=== PATIENT | female | born 1955 | race Hispanic/Latino ===

== ENCOUNTER 2018-07-25 07:51 | Observation (INO) | payer BC ==
[~2018-07-25] VITALS: Ht 157.5 cm; Wt 78.0 kg
--- OUTSIDE RECORDS SUMMARY | 2018-07-25 07:55 | XMS REPORT | Clinical Summary ---
Author Author [facility] Organization [facility] Address Unknown Phone Unavailable Care Team Providers Care Nutrition Therapist Name Role Phone Rosa Severino MD PCP Allergies Comments Active Allergy Reactions Severity Noted Date No Known Allergies 11/21/2012 Medications End Date Status Medication Sig Dispensed Refills Start Date Active sertraline (ZOLOFT) 50 mg Take 1 tablet 90 tablet 3 tabletIndications: by mouth 8 Anxiety and depression daily. Active hydrOXYzine (ATARAX) 25 Take 1 tablet 90 tablet 1 mg tabletIndications: by mouth 8 Anxiety and depression every 8 hours as needed for Anxiety or Insomnia. Active naproxen (NAPROSYN) 375 Take 1 tablet 60 tablet 2 mg tabletIndications: by mouth 2 8 Left-sided chest wall times daily pain, Left arm numbness, as needed for Chronic right-sided low Pain With back pain without food. sciatica, Musculoskeletal pain Active losartan (COZAAR) 50 mg Take 1 tablet 90 tablet 3 tabletIndications: HTN, by mouth 8 goal below 150/90 daily. 11/14/2017 Discontinued clonazePAM (KLONOPIN) 1 Take 2 60 tablet 1 mg tabletIndications: tablets by 3 Anxiety state, mouth nightly unspecified as needed for Anxiety. KEN# [id number], SHAYY LICENSE# [id number], UPIN [id number], NPI# [id number], DPS#[id number], TPI#[id number] 11/14/2017 Discontinued cyclobenzaprine Take 1 tablet 50 tablet 2 (FLEXERIL) 10 mg by mouth 3 3 tabletIndications: times daily Anxiety state, as needed for unspecified Muscle Spasms. 11/14/2017 Discontinued losartan (COZAAR) 50 mg Take 50 mg by 0 tablet mouth daily. 01/23/2018 Discontinued cyanocobalamin (VITAMIN Inject 1,000 1 mL 0 B-12) 1,000 mcg/mL mcg 8 injectionIndications: intramuscular Vitamin B12 deficiency, ly weekly for Left arm numbness, 4 days. Elevated MCV 01/23/2018 Discontinued INSULIN SYRINGE 1mL Use to inject 1 Box 0 30GX5/16" medication 8 syringe-needleIndications weekly : Vitamin B12 deficiency, PHARMACIST IS Left arm numbness, AUTHORIZED TO Elevated MCV DISPENSE ANY SYRINGE / NEEDLE BRAND/SIZE SUITABLE FOR PATIENT ADMINISTRATIO N for 4 doses. Use a new syringe each time. 01/23/2018 Discontinued cyanocobalamin (VITAMIN Inject 1,000 1 mL 0 B-12) 1,000 mcg/mL mcg 8 injectionIndications: intramuscular Vitamin B12 deficiency, ly weekly for Left arm numbness, 4 doses. Elevated MCV 02/14/2018 INSULIN SYRINGE 1mL Use to inject 1 Box 0 30GX5/16" medication 8 syringe-needleIndications weekly : Vitamin B12 deficiency, PHARMACIST IS Left arm numbness, AUTHORIZED TO Elevated MCV DISPENSE ANY SYRINGE / NEEDLE BRAND/SIZE SUITABLE FOR PATIENT ADMINISTRATIO N for 4 doses. Use a new syringe each time. 02/14/2018 cyanocobalamin (VITAMIN Inject 1,000 1 mL 3 B-12) 1,000 mcg/mL mcg 8 injectionIndications: intramuscular Vitamin B12 deficiency, ly weekly for Left arm numbness, 4 doses. Elevated MCV Status Hospital, Clinic, or Ordered Dose Route Frequency Start End Date Other Facility Date Administered Medication Discontinued cyanocobalamin (VITAMIN 1000 mcg IM WEEKLY 01/24/20 B-12) injection 1,000 18 8 mcgIndications: Vitamin B12 deficiency, Left arm numbness, Elevated MCV Active Problems Problem Noted Date Vitamin B12 deficiency 01/23/2018 Hyperlipidemia 11/07/2012 Insomnia 11/07/2012 Unspecified gastritis and gastroduodenitis without mention of hemorrhage 11/07/2012 Generalized Anxiety 11/07/2012 Depression 11/07/2012 Obese with BMI over 30 11/07/2012 Hypertension 11/07/2012 Encounters Care Team Description Date Type Specialty Bee Ibrahim Information Only 01/29/2018 Telephone Family Practice Rosa Severino MD Vitamin B12 deficiency (Primary Dx); Left arm numbness; Elevated MCV; Dehydration; Mixed hyperlipidemia; Colon cancer screening; Prediabetes; Chronic bilateral low back pain without sciatica; HTN, goal below 150/90 01/23/2018 Office Visit Family Practice Kerry Mcgarry Colon Cancer Screening (Education on FIT completion ) 01/21/2018 Telephone Gastroenterology 11/14/2017 Ancillary Radiology Procedure Rosa Severino MD Annual physical exam (Primary Dx); Need for influenza vaccination; Left-sided chest wall pain; Left arm numbness; HTN, goal below 150/90; Anxiety and depression; Chronic right-sided low back pain without sciatica; Musculoskeletal pain 11/14/2017 Office Visit Family Practice after 07/24/2017 Immunizations Name Dates Previously Given Next Due Influenza Vaccine, 11/14/2017 (Deferred: Vaccine Unavailable) Seasonal, Injectable Family History Medical History Relation Name Comments Heart Father Heart attack Asthma Mother Relation Name Status Comments Brother Alive Daughter Alive Daughter Alive Father Heart Attack Mother Alive Sister Alive Sister Alive Sister Alive Son Alive Social History Date Tobacco Use Types Packs/Day Years Used Never Smoker Smokeless Tobacco: Never Used Alcohol Use Drinks/Week oz/Week Comments No Sex Assigned at Date Recorded Not on file Industry Job Start Date Occupation Not on file Not on file Not on file Travel End Travel History Travel Start No recent travel history available. Last Filed Vital Signs Time Taken Vital Sign Reading 01/23/2018 1:02 PM CDT Blood Pressure 150/76 01/23/2018 1:02 PM CDT Pulse 70 01/23/2018 1:02 PM CDT Temperature 36.7 C (98 F) 01/23/2018 1:02 PM CDT Respiratory Rate 18 - Oxygen Saturation - - Inhaled Oxygen - Concentration 01/23/2018 1:02 PM CDT Weight 85.6 kg (188 lb 12.8 oz) 01/23/2018 1:02 PM CDT Height 157.5 cm (5' 2") 01/23/2018 1:02 PM CDT Body Mass Index 34.53 Plan of Treatment Care Team Description Date Type Specialty Rosa Severino MD [address] [facility] [place] [id number] [phone] 08/14/2018 Office Visit Family Practice Health Maintenance Due Date Last Done Comments Colorectal Cancer Scrn 04/24/2007 Annual (FIT/FOBT) Age 50 to 75 Breast Cancer Scrn 12/02/2018 08/03/2017 (Previously completed - Postponed from 08/03/2018 (Yearly) External), 11/07/2009 (Previously (Patient Refused) completed - External), 01/12/2002 Cervical Cancer Scrn (3 08/03/2020 08/03/2017 (Previously completed - Yrs) External), 05/09/2012 (Previously completed - External) Procedures Comments Procedure Name Priority Date/Time Associated Diagnosis XRAY SPINE LUMBOSACRAL Today 11/14/2017 Chronic right-sided low AP-LAT 10:37 AM CDT back pain without sciatica URINE DRUG SCREEN Routine 11/14/2017 Annual physical exam 10:04 AM CDT UA CHEMISTRIES Routine 11/14/2017 Annual physical exam 10:04 AM CDT HTN, goal below 150/90 T PROTEIN Routine 11/14/2017 10:03 AM CDT VITAMIN B12 Routine 11/14/2017 Left arm numbness 10:03 AM CDT SED RATE Routine 11/14/2017 Left arm numbness 10:03 AM CDT ENZO Routine 11/14/2017 Left arm numbness 10:03 AM CDT ELECTROPH, BLD Routine 11/14/2017 Left arm numbness 10:03 AM CDT HBV CORE AB, IGG/IGM Routine 11/14/2017 Annual physical exam 10:03 AM CDT HEPATITIS B SURFACE AB Routine 11/14/2017 Annual physical exam 10:03 AM CDT HEP B SAVANAH AG Routine 11/14/2017 Annual physical exam 10:03 AM CDT HEP C VIR AB IGG Routine 11/14/2017 Annual physical exam 10:03 AM CDT SYPHILIS SCREEN FOR Routine 11/14/2017 Annual physical exam INFECTION 10:03 AM CDT HIV-1/HIV-2 ROUTINE Routine 11/14/2017 Annual physical exam SCREENING 10:03 AM CDT ALT/AST Routine 11/14/2017 Annual physical exam 10:03 AM CDT HEMOGLOBIN A1C Routine 11/14/2017 Annual physical exam 10:03 AM CDT CBC/DIFF Routine 11/14/2017 Annual physical exam 10:03 AM CDT LIPID PROFILE Routine 11/14/2017 Annual physical exam 10:03 AM CDT BASIC METABOLIC PANEL Routine 11/14/2017 Annual physical exam 10:03 AM CDT HTN, goal below 150/90 TSH Routine 11/14/2017 Annual physical exam 10:03 AM CDT 12 LEAD EKG Routine 11/14/2017 Left-sided chest wall 8:59 AM CDT pain Left arm numbness after 07/24/2017 Results * XRAY SPINE LUMBOSACRAL AP-LAT (11/14/2017 10:37 AM CDT) Impressions Performed At IMPRESSION: SMS 1.No acute radiographic abnormality. 2.Mild degenerative disc disease and facet arthropathy at L5-S1. Dictated By: Papa Parada MD, 11/14/2017 11:04 AM I have reviewed the study and agree with the findings in this report. Signed By: Az Amaral MD, 11/14/2017 11:42 AM Narrative Performed At EXAM: Lumbar spine radiograph, 3 views SMS HISTORY: ch right BP with reported radiculopathy but SLRT was neg COMPARISON: None DISCUSSION: Osseous structures are partially obscured by overlying stool and bowel gas. Bone: Five non-rib bearing lumbar vertebral bodies. The alignment is within normal limits. No displaced fracture or compression deformity. Mild degenerative endplate changes. Discs: The disc spaces are well-maintained. Facets: Mild facet arthropathy L5-S1. Soft tissues: No radiographic abnormality. Procedure Note Interface, Rad/Mammog In - 11/14/2017 11:47 AM CDT EXAM: Lumbar spine radiograph, 3 views HISTORY: ch right BP with reported radiculopathy but SLRT was neg COMPARISON: None DISCUSSION: Osseous structures are partially obscured by overlying stool and bowel gas. Bone: Five non-rib bearing lumbar vertebral bodies. The alignment is within normal limits. No displaced fracture or compression deformity. Mild degenerative endplate changes. Discs: The disc spaces are well-maintained. Facets: Mild facet arthropathy L5-S1. Soft tissues: No radiographic abnormality. IMPRESSION IMPRESSION: 1. No acute radiographic abnormality. 2. Mild degenerative disc disease and facet arthropathy at L5-S1. Dictated By: Papa Parada MD, 11/14/2017 11:04 AM I have reviewed the study and agree with the findings in this report. Signed By: Az Amaral MD, 11/14/2017 11:42 AM Performing Organization Address City/[facility] Phone Number SMS * UA CHEMISTRIES (11/14/2017 10:04 AM CDT) Color Yellow BT MAIN-STATION 3 Clarity Hazy BT MAIN-STATION 3 Spec Ladd 1.018 1.001 - 1.035 BT MAIN-STATION 3 pH 6.0 5 - 8 BT MAIN-STATION 3 Protein Negative NEG BT MAIN-STATION 3 Glucose Negative NEG BT MAIN-STATION 3 Ketone Negative NEG BT MAIN-STATION 3 Bilirubin Negative NEG BT MAIN-STATION 3 Nitrate Negative NEG BT MAIN-STATION 3 Urobilinogen <1.0 0.2 - 1.0 EU/dL BT MAIN-STATION 3 Leukocyte Negative NEG BT MAIN-STATION 3 Blood Negative NEG BT MAIN-STATION 3 Specimen Urine Performing Organization Address [facility] Phone Number MISYS BT MAIN-STATION 3 * URINE DRUG SCREEN (11/14/2017 10:04 AM CDT) Amphetamine Negative NEG BT MAIN-STATION Comment: 2 Calibrated Standard: D-Methamphetamine Positive if urine level >qm=9019 ng/mL Test performed on [id number] using EMIT Immunoassay Barbiturate Negative NEG BT MAIN-STATION Comment: 2 Calibrated Standard: Secobarbital Positive if urine level is >li=782 ng/mL Test performed on [id number] using EMIT Immunoassay Benzodiazepine Negative NEG BT MAIN-STATION Comment: 2 Calibrated Standard: Lormethazepam Positive if urine level is >ce=827 ng/mL Test performed on [id number] using EMIT Immunoassay Cannabinoid Negative NEG BT MAIN-STATION Comment: 2 Calibrated Standard: 11 nor-delta(9)-THC carboxylic a Positive if urine level >or=50 Test performed on [id number] using EMIT Immunoassay Cocaine Negative NEG BT MAIN-STATION Comment: 2 Calibrated Standard: Benzoylecgonine Positive if urine level >jm=325 Test performed on [id number] using EMIT Immunoassay Opiate, Ur Negative NEG BT MAIN-STATION Comment: 2 Calibrated Standard: Morphine Positive if urine level >tb=740 Test performed on [id number] using EMIT Immunoassay PCP Negative NEG BT MAIN-STATION Comment: 2 Calibrated Standard: Phencyclidine Positive if urine level >or=25 Test performed on [id number] using EMIT Immunoassay Urine Toxicology Screen results are to be used only for Medical purposes. Specimen Urine Performing Organization Address [facility] Phone Number Dating [employer] BT MAIN-STATION 2 * HEPATITIS B SURFACE AB (11/14/2017 10:03 AM CDT) HBsAb Negative NEG BT MAIN-STATION 3 HBsAb <4.20 BT MAIN-STATION Concentration Negative: <8.00 mIU/mL 3 Grayzone: > or=8.00 mIU/mL to <12.00 mIU/mL Positive: > or=12.00 mIU/mL Specimen Blood Performing Organization Address [facility] Phone Number [employer] BT MAIN-STATION 3 * SYPHILIS SCREEN FOR INFECTION (11/14/2017 10:03 AM CDT) Treponemal Ab Negative BT DIAGNOSTIC IMMUNOLOGY Final Report Negative BT DIAGNOSTIC IMMUNOLOGY Performing Organization Address [facility] Phone Number MISYS BT DIAGNOSTIC IMMUNOLOGY * HIV-1/HIV-2 ROUTINE SCREENING (11/14/2017 10:03 AM CDT) HIV-1/HIV-2 Negative NEG BT MAIN-STATION 3 Performing Organization Address [facility] Phone Number GtxhYS BT MAIN-STATION 3 * HBV CORE AB, IGG/IGM (11/14/2017 10:03 AM CDT) Hep B Core Ab, Negative LABORATORY IgM Reference range: Negative [employer] ABBI Hep B Core Ab, Negative LABORATORY Tot Reference range: Negative [employer] [facility] Specimen Blood Performing Organization Address [facility] Phone Number Dating [employer] [facility] OF [address] [facility] [place], [place] [id number] ABBI 145 * HEMOGLOBIN A1C (11/14/2017 10:03 AM CDT) Hemoglobin A1c 5.8 4.3 - 6.1 % [facility] Est Average 119.8 mg/dL [facility] Gluc Specimen Blood Performing Organization Address [facility] Phone Number MISYS [facility] * TSH (11/14/2017 10:03 AM CDT) TSH 4.71 0.45 - 5.33 uIU/mL BT MAIN-STATION 4 Specimen Blood Performing Organization Address [facility] Phone Number [facility] * VITAMIN B12 (11/14/2017 10:03 AM CDT) Vitamin B12 272 211 - 911 pg/mL BT MAIN-STATION 4 Specimen Blood Performing Organization Address [facility] Phone Number [facility] 4 * HEP B SAVANAH AG (11/14/2017 10:03 AM CDT) HBsAg Negative NEG BT MAIN-STATION 3 Specimen Blood Performing Organization Address [facility] Phone Number [facility] BT MAIN-STATION 3 * SED RATE (11/14/2017 10:03 AM CDT) Sed Rate 20 <30 mm/Hr BT MAIN-STATION 3 Specimen Blood Performing Organization Address [facility] Phone Number [facility] 3 * T PROTEIN (11/14/2017 10:03 AM CDT) T Protein 7.7 6.0 - 8.3 g/dL BT MAIN-STATION 4 Performing Organization Address [facility] Phone Number [facility] 4 * LIPID PROFILE (11/14/2017 10:03 AM CDT) Cholesterol 252 mg/dL BT MAIN-STATION Comment: 4 REFERENCE RANGE: Desirable: <200 mg/dL Borderline: 200-240 mg/dL High Risk: >240 mg/dL Triglyceride 159 (H) <150 mg/dL BT MAIN-STATION Comment: 4 REFERENCE RANGE: Normal: <150 mg/dL Borderline High: 150-199 mg/dL High: 200-499 mg/dL Very High: >da=127 mg/dL HDL 51 mg/dL BT MAIN-STATION Comment: 4 Increased CHD risk: <40 mg/dL Decreased CHD risk: >60 mg/dL LDL 169 mg/dL BT MAIN-STATION Comment: 4 REFERENCE RANGE: Optimal: <100 mg/dL Near Optimal: 100-129 mg/dL Borderline High: 130-159 mg/dL High: 160-189 mg/dL Very High: >ez=813 mg/dL Specimen Blood Performing Organization Address City/[facility]/Zipcode Phone Number MISYS BT MAIN-STATION 4 * HEP C VIR AB IGG (11/14/2017 10:03 AM CDT) HCV IgG Negative NEG BT MAIN-STATION 3 Specimen Blood Performing Organization Address City/[facility]/Zipcode Phone Number MISYS BT MAIN-STATION 3 * ELECTROPH, BLD (11/14/2017 10:03 AM CDT) Protein 7.7 g/dL DIAGNOSTIC IMMUNOLOGY Comment Electronically signed out by: DIAGNOSTIC Lorena Junior, IMMUNOLOGY M.D.,Ph.D./[id number] I have personally reviewed the relevant preparations and agree with the resident's/fellow's prelimanary interpretation. (note) INTERPRETATION: Increased albumin and total protein consistent with dehydration. Specimen Blood Performing Organization Address City/[facility]/Zipcode Phone Number MISYS DIAGNOSTIC IMMUNOLOGY * CBC/DIFF (11/14/2017 10:03 AM CDT) WBC 4.0 (L) 4.5 - 11.0 K/uL [facility] RBC 4.54 4.20 - 5.40 M/uL [facility] Hemoglobin 14.6 12.0 - 16.0 g/dL [facility] Hematocrit 43.2 37.0 - 47.0 % [facility] MCV 95 (H) 82 - 92 fL [facility] MCH 32.2 (H) 27.0 - 32.0 pg [facility] MCHC 33.8 32.0 - 36.0 g/dL [facility] RDW 45.5 36.4 - 46.3 fL [facility] Platelet 213 150 - 400 K/uL [facility] Neutrophil 51.3 34.0 - 70.0 % [facility] Lymphocyte 40.3 20.0 - 50.0 % [facility] Monocyte 6.4 5.0 - 12.0 % [facility] Eosinophil 1.5 0.7 - 5.0 % [facility] Basophil 0.5 0.1 - 1.2 % [facility] Neutrophil, Abs 2.07 1.56 - 6.13 K/uL [facility] Lymphocyte, Abs 1.63 1.18 - 3.74 K/uL [facility] Monocyte, Abs 0.26 0.24 - 0.36 K/uL [facility] Eosinophil, Abs 0.06 0.04 - 0.36 K/uL [facility] Basophil, Abs 0.02 0.01 - 0.08 K/uL [facility] Specimen Blood Performing Organization Address [facility] Phone Number [facility] * BASIC METABOLIC PANEL (11/14/2017 10:03 AM CDT) Pathologist [facility] CO2 29 21 - 31 mmol/L BT MAIN-STATION 4 Chloride 104 98 - 107 mmol/L BT MAIN-STATION 4 Potassium 3.8 3.5 - 5.1 mmol/L BT MAIN-STATION 4 Sodium 144 136 - 145 mmol/L BT MAIN-STATION 4 Glucose 91 70 - 110 mg/dL BT MAIN-STATION 4 Urea Nitrogen 12 7 - 25 mg/dL BT MAIN-STATION 4 Creatinine 0.50 (L) 0.6 - 1.2 mg/dL BT MAIN-STATION 4 Anion Gap 11 BT MAIN-STATION 4 Calcium 9.1 8.6 - 10.3 mg/dL BT MAIN-STATION 4 GFR, Estimated >60 mL/min/1.73 m2 BT MAIN-STATION 4 GFR, Estim, >60 mL/min/1.73 m2 BT MAIN-STATION Afr-Am 4 Specimen Blood Performing Organization Address [facility] Phone Number [facility] 4 * ALT/AST (11/14/2017 10:03 AM CDT) ALT 26 7 - 52 U/L BT MAIN-STATION 4 AST 18 13 - 39 U/L BT MAIN-STATION 4 Specimen Blood Performing Organization Address [facility] Phone Number [facility] BT [facility] 4 * ENZO (11/14/2017 10:03 AM CDT) ENZO Screen Negative NEG BT DIAGNOSTIC IMMUNOLOGY Specimen Blood Performing Organization Address [facility] Phone Number [facility] DIAGNOSTIC IMMUNOLOGY * 12 LEAD EKG (11/14/2017 8:59 AM CDT) 12 LEAD EKG FOR SMS [facility] Test Date:2017-11-14 Pat Name: ANANTH MCKEON epartment: Room: Gender: F [employer] Stock [employer] Helper: JEREMIAH :[phone] Requested By: Order Number: R stella MD: Brittny Leblanc Measurements Intervals [place] Rate: 56 P:43 NV: 178 QRS: -6 QRSD: 84 T:4 QT: 470 QTc:453 Interpretive Statements Sinus bradycardia Moderate voltage criteria for LVH, may be normal variant Borderline ECG Electronically Signed On 11-14-17 10:02:48 CDT by Brittny Leblanc Performing Organization Address City/State/Zipcode Phone Number [facility] after 07/24/2017 Insurance Type Payer Benefit Subscriber ID Effective Phone Address Plan / Dates Group BC/BS BCBS O xxxxxxxxxxxx 2018-P [phone] [address] [place] [address]
--- OUTSIDE RECORDS SUMMARY | 2018-07-25 07:55 | XMS REPORT ---
[facility] Address Unknown Phone Unavailable Care Team Providers Care Local Sales Associate Name Role Phone Unavailable Unavailable Problems This patient has no known problems. Allergies, Adverse Reactions, Alerts This patient has no known allergies or adverse reactions. Medications This patient has no known medications. Encounters Start Date/Time End Date/Time Encounter Type Admission Type Attending [facility] Care Department Encounter ID 2018-08-14 00:00:00 2018-08-14 00:00:00 Outpatient [facility] [id number] 2018-07-22 00:00:00 2018-07-22 00:00:00 Outpatient [facility] [id number] 2018-05-08 00:00:00 2018-05-08 00:00:00 Outpatient [facility] [id number] 2018-01-23 13:02:16 2018-01-23 13:02:16 Outpatient [facility] [id number] 2018-01-15 00:00:00 2018-01-15 00:00:00 Outpatient [facility] [id number] 2017-12-24 00:00:00 2017-12-24 00:00:00 Outpatient [facility] [id number] 2017-12-23 00:00:00 2017-12-23 00:00:00 Outpatient [facility] [id number] 2017-12-23 00:00:00 2017-12-23 00:00:00 Outpatient [facility] [id number] 2017-11-14 10:28:39 2017-11-14 10:28:39 Outpatient [facility] [id number] 2017-11-14 10:08:24 2017-11-14 10:08:24 Outpatient [facility] [id number] 2017-11-14 08:17:53 2017-11-14 08:17:53 Outpatient [facility] [id number]
[2018-07-25] MEDS ORDERED: SODIUM CHLORIDE 0.9% 1000ML 1,000 ML IV STA (08:18)
[2018-07-25] MEDS ORDERED: NITROGLYCERIN 2% OINT 1 GM PKT TOP ONE (08:30)
[2018-07-25 08:38] LABS: BASOPHILS % 0.6 % (0.0-1.0); EOSINOPHILS % 0.9 % (0.0-6.0); HEMATOCRIT 42.2 % (34.2-44.1); HEMOGLOBIN 14.3 g/dL (12.0-16.0); LYMPHOCYTES # (AUTO) 1.6 (1.0-3.2); LYMPHOCYTES % 33.8 % (18.0-39.1); MEAN CORPUSCULAR HEMOGLOBIN 31.4 pg (28-32); MEAN CORPUSCULAR HGB CONC 33.9 g/dL (31-35); MEAN CORPUSCULAR VOLUME 92.7 fL (81-99); MONOCYTES # (AUTO) 0.3 (0.2-0.8); MONOCYTES % 6.8 % (4.4-11.3); NEUTROPHILS # (AUTO) 2.7 (2.1-6.9); NEUTROPHILS % 57.7 % (38.7-80.0); PLATELET COUNT 185 x10e3/uL (140-360); RED BLOOD COUNT 4.55 x10e6/uL (3.6-5.1)
[2018-07-25 08:46] LABS: BILIRUBIN,URINE NEGATIVE (NEGATIVE); CLARITY,URINE SL CLOUDY (CLEAR); COLOR,URINE YELLOW (YELLOW); KETONES,URINE NEGATIVE (NEGATIVE); LEUKOCYTE ESTERASE ,URINE 1+ (NEGATIVE); NITRITE,URINE NEGATIVE (NEGATIVE); PROTEIN,URINE DIPSTICK NEGATIVE (NEGATIVE); URINE UROBILINOGEN 0.2 mg/dL (0.2 - 1)
[2018-07-25 08:55] LABS: EPITHELIAL CELLS,URINE FEW /LPF
[2018-07-25 08:57] LABS: INR 0.86; PROTHROMBIN TIME 12.5 seconds (11.9-14.5)
[2018-07-25 09:00] LABS: RENAL EPITHELIAL CELLS,URINE RARE; TRANSITIONAL EPI CELLS,URINE RARE
[2018-07-25] MEDS ORDERED: ASPIRIN 81 MG CHEW TAB PO ONE (09:00)
[2018-07-25] MEDS ORDERED: ONDANSETRON HCL INJ 2 MG/ML VIAL IV ONE (09:00)
[2018-07-25] MEDS ORDERED: PANTOPRAZOLE 40 MG 10ML VIAL IV ONE (09:00)
[2018-07-25] MEDS ORDERED: MORPHINE SULFATE 2 MG/ML SYR IV ONE (09:00)
--- NOTE | 2018-07-25 09:00 | Diagnostic Imaging Report ---
EXAMINATION: CHEST SINGLE (PORTABLE) INDICATION: ^CP ^[id number] ^[id number] COMPARISON: None FINDINGS: AP view Limited by body habitus. TUBES and LINES: None. LUNGS: Lungs are well inflated. There is no evidence of pneumonia or pulmonary edema. PLEURA: No pleural effusion or pneumothorax. HEART AND MEDIASTINUM: The cardiomediastinal silhouette is unremarkable. BONES AND SOFT TISSUES: No acute osseous lesion. Soft tissues are unremarkable. UPPER ABDOMEN: No free air under the diaphragm. IMPRESSION: No acute thoracic abnormality. Signed by: Dr. Riccardo Purdy MD on 07/25/2018 8:57 AM
[2018-07-25 09:08] LABS: ALANINE AMINOTRANSFERASE 29 IU/L (0-55); ALBUMIN 3.7 g/dL (3.5-5.0); ALBUMIN/GLOBULIN RATIO 1.3 (0.8-2.0); ALKALINE PHOSPHATASE 75 IU/L (40-150); AMYLASE 35 U/L (25-125); ANION GAP 13.5 mmol/L (8-16); BLOOD UREA NITROGEN 11 mg/dL (7-26); BUN/CREATININE RATIO 15 (6-25); CALCIUM 8.9 mg/dL (8.4-10.2); CARBON DIOXIDE 24 mmol/L (22-29); CHLORIDE 105 mmol/L (98-107); CREATINE KINASE 43 IU/L (29-168); CREATININE, SERUM 0.71 mg/dL (0.57-1.11); EST GLOMERULAR FILTRATION RATE > 60 ML/MIN (60-); GLUCOSE 104 mg/dL (74-118); LIPASE 19 U/L (8-78); MAGNESIUM 2.2 MG/DL (1.3-2.1); POTASSIUM 3.5 mmol/L (3.5-5.1); SODIUM 139 mmol/L (136-145)
--- NOTE | 2018-07-25 09:09 | Diagnostic Imaging Report ---
EXAMINATION: Head CT HISTORY: Headache on the left side for the last 2 weeks., COMPARISON: None. TECHNIQUE: Multidetector axial images were obtained without contrast from the foramen magnum to the vertex . The images were reconstructed using brain and bone algorithms. Thin section brain images were reformatted into coronal and sagittal planes. Image quality: Motion/streaking artifact limits the evaluation of the skull base and posterior cranial fossa. Dose modulation, iterative reconstruction, and/or weight based adjustment of the mA/kV was utilized to reduce the radiation dose to as low as reasonably achievable. FINDINGS: Parenchyma: 1. No abnormal densities. 2. No mass or hemorrhage. No CT evidence of acute territorial vascular insult. Extra-axial spaces:No abnormal density. No extra-axial fluid collections Brain volume: Normal for age. Ventricles: No hydrocephalus or displacement. Arteries: No density suggestive of thrombus. Dural sinuses: No abnormal density. Extra-axial spaces: No abnormal density. Foramen magnum: No mass, Chiari malformation, or basilar invagination. Sella: No obvious mass. Paranasal/mastoid sinuses: Minimal mucosal inflammatory thickening of the left frontal sinus, otherwise clear. Skull/Scalp: No lytic or blastic lesions. No fractures. IMPRESSION: No intracranial abnormalities. Signed by: Dr. Janessa Smiley M.D. on 07/25/2018 9:06 AM
[2018-07-25 09:18] LABS: B-TYPE NATRIURETIC PEPTIDE2 56.4 pg/mL (0-100)
--- NOTE | 2018-07-25 10:27 | Diagnostic Imaging Report ---
EXAM: CT ABDOMEN AND PELVIS with IV CONTRAST DATE: 07/25/2018 8:18 AM INDICATION: Abdominal pain COMPARISON: None TECHNIQUE: The abdomen and pelvis were scanned using a multidetector helical scanner. Coronal and sagittal reformations were obtained. Routine protocol performed. Active dose reduction parameters were utilized. IV Contrast: 100 cc of Isovue-370 Oral Contrast: Water Radiation Dose: Total DLP 658.90 mGy*cm Estimated effective dose: DLP x 0.015 x size factor FINDINGS: LOWER THORAX: No consolidations LIVER: No masses with decreased attenuation of the liver compatible with fatty infiltration. BILIARY: The gallbladder is unremarkable. No ductal dilatation. SPLEEN: No masses PANCREAS: No masses ADRENALS: No nodules KIDNEYS: Symmetric perfusion. No enhancing masses. No hydronephrosis. GI TRACT: No distention, wall thickening or evidence of obstruction. The appendix is normal. VESSELS: Scattered atherosclerotic calcification. There are 2 right renal arteries. Calcification within the right gonadal vein. PERITONEUM/RETROPERITONEUM: No free air or fluid LYMPH NODES: No lymphadenopathy REPRODUCTIVE ORGANS: Unremarkable BLADDER: The urinary bladder is distended. SOFT TISSUES: Unremarkable BONES: No suspicious bone lesions. Mild degenerative changes of the spine. IMPRESSION: 1. Fatty infiltration of the liver. 2. Urinary bladder distention. Signed by: Dr. Mike Lemus DO on 07/25/2018 10:24 AM
[2018-07-25] MEDS ORDERED: CEFTRIAXONE SOD 1 GM VIAL IV SCH (11:00)
--- NOTE | 2018-07-25 11:06 | NUR ---
I spoke with admitting Dr Longoria, finisher fine diamond dies Dr Salvador Sung for consult
[2018-07-25] MEDS ORDERED: ONDANSETRON HCL INJ 2 MG/ML VIAL IV PRN (11:15)
[2018-07-25] MEDS ORDERED: MORPHINE SULFATE INJ 4 MG/ML INJ IV PRN (11:15)
--- OUTSIDE RECORDS SUMMARY | 2018-07-25 11:22 | XMS REPORT | Clinical Summary ---
Author Author [facility] Organization [facility] Address Unknown Phone Unavailable Care Team Providers Care Private Branch Exchange Repairer Name Role Phone Rosa Severino MD PCP [...] nightly unspecified as needed for Anxiety. KEN# [id number], SHAYY LICENSE# [id number], UPIN [id number], NPI# [id number], DPS#[id number], TPI#[id number] 11/14/2017 Discontinued cyclobenzaprine Take 1 tablet 50 [...] Type Specialty Rosa Severino MD [address] [facility] [place] [address] [phone] 08/14/2018 Office Visit Family Practice Health Maintenance [...] MD, 11/14/2017 11:42 AM Performing Organization Address City/[facility] Phone Number SMS * UA CHEMISTRIES (11/14/2017 10:04 AM CDT) Color Yellow BT MAIN-STATION 3 Clarity Hazy BT MAIN-STATION 3 Spec Hutchinson 1.018 1.001 - 1.035 BT MAIN-STATION 3 [...] MAIN-STATION 3 Specimen Urine Performing Organization Address [facility] Phone Number MISYS BT MAIN-STATION 3 * URINE DRUG SCREEN (11/14/2017 10:04 AM CDT) Amphetamine Negative NEG BT MAIN-STATION Comment: 2 Calibrated Standard: D-Methamphetamine Positive if urine level >xa=0989 ng/mL Test performed on [id number] using EMIT Immunoassay Barbiturate Negative NEG BT MAIN-STATION Comment: 2 Calibrated Standard: Secobarbital Positive if urine level is >fc=962 ng/mL Test performed on [id number] using EMIT Immunoassay Benzodiazepine Negative NEG BT MAIN-STATION Comment: 2 Calibrated Standard: Lormethazepam Positive if urine level is >zu=526 ng/mL Test performed on [id number] using EMIT Immunoassay Cannabinoid Negative NEG BT MAIN-STATION Comment: 2 Calibrated Standard: 11 nor-delta(9)-THC carboxylic a Positive if urine level >or=50 Test performed on [id number] using EMIT Immunoassay Cocaine Negative NEG BT MAIN-STATION Comment: 2 Calibrated Standard: Benzoylecgonine Positive if urine level >zs=903 Test performed on [id number] using EMIT Immunoassay Opiate, Ur Negative NEG BT MAIN-STATION Comment: 2 Calibrated Standard: Morphine Positive if urine level >mm=436 Test performed on [id number] using EMIT Immunoassay PCP Negative NEG BT MAIN-STATION Comment: 2 Calibrated Standard: Phencyclidine Positive if urine level >or=25 Test performed on [id number] using EMIT Immunoassay Urine Toxicology Screen results are to be used only for Medical purposes. Specimen Urine Performing Organization Address [facility] Phone Number [employer] BT MAIN-STATION 2 * HEPATITIS B SURFACE AB (11/14/2017 10:03 AM CDT) HBsAb Negative NEG BT MAIN-STATION 3 HBsAb <4.20 BT MAIN-STATION Concentration Negative: <8.00 mIU/mL 3 Grayzone: > or=8.00 mIU/mL to <12.00 mIU/mL Positive: > or=12.00 mIU/mL Specimen Blood Performing Organization Address [facility] Phone Number EvgenYS BT MAIN-STATION 3 * SYPHILIS SCREEN FOR INFECTION (11/14/2017 10:03 AM CDT) Treponemal Ab Negative BT DIAGNOSTIC IMMUNOLOGY Final Report Negative BT DIAGNOSTIC IMMUNOLOGY Performing Organization Address [facility] Phone Number MISYS BT DIAGNOSTIC IMMUNOLOGY * HIV-1/HIV-2 ROUTINE SCREENING (11/14/2017 10:03 AM CDT) HIV-1/HIV-2 Negative NEG BT MAIN-STATION 3 Performing Organization Address [facility] Phone Number EvgenYS BT MAIN-STATION 3 * HBV CORE AB, IGG/IGM (11/14/2017 10:03 AM CDT) Hep B Core Ab, Negative LABORATORY IgM Reference range: Negative [employer] OF [facility] Hep B Core Ab, Negative LABORATORY Tot Reference range: Negative [employer] [facility] Specimen Blood Performing Organization Address [facility] Phone Number [employer] Business Plan [facility]ORY [facility] OF [address] [facility], [place], [place] [id number] [facility] 145 * HEMOGLOBIN A1C (11/14/2017 10:03 AM CDT) Hemoglobin A1c 5.8 4.3 - 6.1 % [facility] Est Average 119.8 mg/dL [facility] Gluc Specimen Blood Performing Organization Address [facility] Phone Number MISYS [facility] * TSH (11/14/2017 10:03 AM CDT) TSH 4.71 0.45 - 5.33 uIU/mL BT MAIN-STATION 4 Specimen Blood Performing Organization Address [facility] Phone Number [facility] * VITAMIN B12 (11/14/2017 10:03 AM CDT) Vitamin B12 272 211 - 911 pg/mL BT MAIN-STATION 4 Specimen Blood Performing Organization Address [facility] Phone Number [facility] BT [facility] 4 * HEP B SAVANAH AG (11/14/2017 10:03 AM CDT) HBsAg Negative NEG BT MAIN-STATION 3 Specimen Blood Performing Organization Address [facility] Phone Number [facility] BT MAIN-STATION 3 * SED RATE (11/14/2017 10:03 AM CDT) Sed Rate 20 <30 mm/Hr BT MAIN-STATION 3 Specimen Blood Performing Organization Address [facility] Phone Number [facility] 3 * T PROTEIN (11/14/2017 10:03 AM CDT) T Protein 7.7 6.0 - 8.3 g/dL BT MAIN-STATION 4 Performing Organization Address [facility] Phone Number [facility] 4 * LIPID PROFILE (11/14/2017 10:03 AM CDT) Cholesterol 252 mg/dL BT MAIN-STATION Comment: 4 REFERENCE RANGE: Desirable: <200 mg/dL Borderline: 200-240 mg/dL High Risk: >240 mg/dL Triglyceride 159 (H) <150 mg/dL BT MAIN-STATION Comment: 4 REFERENCE RANGE: Normal: <150 mg/dL Borderline High: 150-199 mg/dL High: 200-499 mg/dL Very High: >fy=504 mg/dL HDL 51 mg/dL BT MAIN-STATION Comment: 4 Increased CHD risk: <40 mg/dL Decreased CHD risk: >60 mg/dL LDL 169 mg/dL BT MAIN-STATION Comment: 4 REFERENCE RANGE: Optimal: <100 mg/dL Near Optimal: 100-129 mg/dL Borderline High: 130-159 mg/dL High: 160-189 mg/dL Very High: >op=230 mg/dL Specimen Blood Performing Organization Address City/[facility]/Zipcode Phone Number MISYS BT MAIN-STATION 4 * HEP C VIR AB IGG (11/14/2017 10:03 AM CDT) HCV IgG Negative NEG BT MAIN-STATION 3 Specimen Blood Performing Organization Address City/[facility]/Zipcode Phone Number MISYS BT MAIN-STATION 3 * ELECTROPH, BLD (11/14/2017 10:03 AM CDT) Protein 7.7 g/dL DIAGNOSTIC IMMUNOLOGY Comment Electronically signed out by: DIAGNOSTIC Lorena Junior, IMMUNOLOGY M.D.,Ph.D./[id number] I have personally reviewed the relevant preparations and agree with the resident's/fellow's prelimanary interpretation. (note) INTERPRETATION: Increased albumin and total protein consistent with dehydration. Specimen Blood Performing Organization Address City/[facility]/Zipcode Phone Number MISYS DIAGNOSTIC IMMUNOLOGY * CBC/DIFF (11/14/2017 10:03 AM CDT) WBC 4.0 (L) 4.5 - 11.0 K/uL [facility] RBC 4.54 4.20 - 5.40 M/uL [facility] Hemoglobin 14.6 12.0 - 16.0 g/dL [facility] Hematocrit 43.2 37.0 - 47.0 % [facility] MCV 95 (H) 82 - 92 fL [facility] MCH 32.2 (H) 27.0 - 32.0 pg [facility] MCHC 33.8 32.0 - 36.0 g/dL [facility] RDW 45.5 36.4 - 46.3 fL [facility] Platelet 213 150 - 400 K/uL [facility] Neutrophil 51.3 34.0 - 70.0 % [...] [facility] Specimen Blood Performing Organization Address [facility] Phone Number [facility] * BASIC METABOLIC PANEL (11/14/2017 10:03 AM CDT) Pathologist [facility] CO2 29 21 - 31 mmol/L BT [...] Afr-Am 4 Specimen Blood Performing Organization Address [facility] Phone Number [facility] BT [facility] 4 * ALT/AST (11/14/2017 10:03 AM CDT) ALT 26 7 - 52 U/L BT MAIN-STATION 4 AST 18 13 - 39 U/L BT MAIN-STATION 4 Specimen Blood Performing Organization Address [facility] Phone Number [facility] BT [facility] 4 * ENZO (11/14/2017 10:03 AM CDT) ENZO Screen Negative NEG BT DIAGNOSTIC IMMUNOLOGY Specimen Blood Performing Organization Address [facility] Phone Number [facility] DIAGNOSTIC IMMUNOLOGY * 12 LEAD EKG (11/14/2017 8:59 AM CDT) 12 LEAD EKG FOR SMS [facility] Test Date:2017-11-14 Pat Name: ANANTH MCKEON epartment: Room: Gender: F Technical Solutions Consultant: JEREMIAH :[phone] Requested By: Order Number: R stella MD: Brittny Leblanc Measurements Intervals [place] Rate: 56 P:43 NV: 178 QRS: -6 QRSD: 84 T:4 QT: 470 QTc:453 Interpretive Statements Sinus bradycardia Moderate voltage criteria for LVH, may be normal variant Borderline ECG Electronically Signed On 11-14-17 10:02:48 CDT by Brittny Leblanc Performing Organization Address City/State/Zipcode Phone Number [facility] after 07/24/2017 Insurance Type Payer Benefit Subscriber ID Effective Phone Address Plan / Dates Group BC/BS BCBS O xxxxxxxxxxxx 2018-P [phone] [id number] [place] [address]
[2018-07-25] MEDS ORDERED: IOPAMIDOL 370 MG/ML 200 ML INFUS..BTL INJ ONE ×2 (12:01→19:15)
[2018-07-25] MEDS ORDERED: SODIUM CHLORIDE 0.9% 50ML 50 ML ONE (12:01)
[2018-07-25] MEDS ORDERED: METOPROLOL TART50 MG PO (12:18)
[2018-07-25] MEDS ORDERED: ATORVASTATIN CA20 MG PO (12:18)
[2018-07-25] MEDS ORDERED: AMLODIPINE BESYL5 MG PO (12:18)
[2018-07-25] MEDS ORDERED: CLOPIDOGREL BISULFATE 75 MG TAB ONE (12:21)
[2018-07-25] MEDS: CEFTRIAXONE SOD 1 GM/NS 50 ML 50 ML IV SCH (12:28)
[2018-07-25] MEDS ORDERED: CLOPIDOGREL BISULFATE 75 MG TAB PO ONE (12:30)
[2018-07-25 12:56] LABS: CREATINE KINASE MB 0.6 ng/mL (0-5.0)
[2018-07-25] MEDS: SODIUM CHLORIDE 0.9% 1000ML 1,000 ML IV SCH (13:01)
--- NOTE | 2018-07-25 13:19 | Consultation ---
DATE OF CONSULTATION: July 25, 2018 CARDIOLOGY CONSULTATION REASON FOR CONSULTATION: Urgent consultation for very unstable coronary syndrome. HISTORY: This 63-year-old lady is hypertensive and hyperlipidemic. She is in her usual status of health. She takes her medications for blood pressure and hypertension. She is usually on metoprolol and atorvastatin. Recently, amlodipine was added to her medical regimen. 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 Patient was seen by emergency room physician. She had the first set of cardiac enzymes that were normal. CT head is normal. Urgent cardiac consultation is obtained. Patient was seen approximately 40 minutes after the consult. She still complains of chest pain on and off. Second cardiac enzymes were sent. Patient loaded also with Plavix 600 mg. Patient's symptoms seem to be very typical, starting 2 to 3 weeks ago, progressively worsening, becoming at rest and very impressive. She denied having any hematemesis, any melena, any heartburn, any abdominal pain. REVIEW OF SYSTEMS GENERAL: No fever. No chills. No recent cold-like illness. CARDIAC: As per acute illness. PULMONARY: No cough. No hemoptysis. GI: No hematemesis. No melena. Occasional, rarely, heartburn. : No hematuria. No dysuria. MUSCULOSKELETAL: Right knee pain. NEUROLOGIC: No seizure activity. No headache. No change in vision. No localized motor deficits. HEMATOLOGY: No bleeding. No easy bruising. ENDOCRINE: No diabetes. HOME MEDICATIONS 1. Amlodipine 5 mg a day. 2. Metoprolol 50 mg twice a day. 3. Atorvastatin 20 mg a day. ALLERGIES: NONE. PAST MEDICAL HISTORY 1. Hypertension. 2. Hyperlipidemia. 3. Obesity. 4. Right knee surgery. FAMILY HISTORY: Father of myocardial infarction at age at 72. Mother of congestive heart failure at age 86. Four siblings, 1 brother and 3 sisters, with hypertension. Four kids, 2 sons and 2 daughters, are healthy. PHYSICAL EXAMINATION VITALS: Height of 5 feet 4 inches, weight of 180 pounds. Blood pressure 130/80. Heart rate of 60. Respiratory rate of 18. HEENT: Pupils are reactive. NECK: No elevation of jugular venous pulsation. No bruit. CHEST: Clear to auscultation and percussion. HEART: PMI at 5th left intercostal space. Normal 1st and 2nd heart sounds. ABDOMEN: Soft, with good bowel sounds. EXTREMITIES: No cyanosis. No clubbing. No edema. NEUROLOGIC: Awake, alert and oriented. Neck is supple. No motor deficits. LAB DATA: As per chart. IMPRESSION AND PLAN 1. Unstable coronary syndrome. 2. Hypertension. 3. Hyperlipidemia. 4. Obesity. PLAN: Second set of cardiac enzymes is sent. The patient is loaded with Plavix. Options of workup are discussed. The patient will be taken to the cardiac cathodic protection technician today urgently. This will become emergency if her cardiac enzymes are positive. She understands her problem. Questions are answered. Pros and cons are explained. Job#: [id number]
--- NOTE | 2018-07-25 13:50 | NUR ---
PATIENT ARRIVED FROM ER VIA WHEELCHAIR. SHE IS AWAKE AND ALERTX4, IN NAD. PATIENT WAS ABLE TO AMBULATE TO BED WITHOUT ASSISTANCE. FAMILY IS IN THE ROOM. PT IS CURRENTLY NPO FOR PLANNED PROCEDURE AND IS AWARE.
[2018-07-25 14:00] VITALS: BP 171/71
[2018-07-25 14:41] VITALS: BP 186/86
[2018-07-25 15:36] VITALS: BP 161/82
--- NOTE | 2018-07-25 19:00 | NUR ---
Walking rounds done and report given to night nurse. Patient is aware planned procedure will take place shortly. Call uriostegui within reach.
[2018-07-25] MEDS ORDERED: MIDAZOLAM HCL 2 MG/2 ML VIAL ONE (19:15)
[2018-07-25] MEDS ORDERED: LIDOCAINE HCL 2% LOCAL 20 ML VIAL ONE (19:15)
[2018-07-25] MEDS ORDERED: HEPARIN SOD/SOD CHLORIDE 2,000 ML ONE (19:15)
[2018-07-25] MEDS ORDERED: FENTANYL CITRATE/PF 100MCG/2 ML INJ ONE (19:15)
[2018-07-25] MEDS ORDERED: SODIUM CHLORIDE 0.9% 1000ML 1,000 ML ONE (19:16)
[2018-07-25] MEDS ORDERED: HYDRALAZINE HCL 20 MG/ML VIAL ONE (20:04)
[2018-07-25] MEDS: FAMOTIDINE 20 MG/2 ML VIAL IV SCH (21:00)
[2018-07-25] MEDS ORDERED: ACETAMINOPHEN 325 MG TAB PO PRN (21:00)
[2018-07-25] MEDS ORDERED: ATORVASTATIN 20 MG TAB PO SCH (21:00)
[2018-07-25] MEDS ORDERED: HYDROCODONE/APAP 5MG-325MG TAB PO ONE (21:00)
[2018-07-25 21:37] VITALS: BP 129/59
[2018-07-25 21:59] LABS: CREATINE KINASE 39 IU/L (29-168)
--- NOTE | 2018-07-25 22:56 | Operative Report ---
DATE OF PROCEDURE: July 25, 2018 OPERATION PERFORMED: Left cardiac catheterization. INDICATIONS: Unstable angina, repeated chest pain. ER admission, the patient continued to have chest pain, on appropriate medication. The procedure done on 07/25/2018 at 8 p.m. TECHNICAL DETAILS: After the usual sterile preparation and draping procedure, intravenous Versed and fentanyl given for sedation and local Xylocaine for anesthesia. A 4-Chinese sheath established in place. Julia left 4 and 3DRC to engage coronaries, pigtail for hemodynamic measurement and left ventriculogram. At the end of the procedure, sheath was removed. Hemostasis achieved manually. No complication. No blood loss. RESULTS: A. Coronary angiogram. 1. Left main free of disease. 2. LAD. There is 30% mid LAD lesion. 3. Circumflex coronary artery codominant circulation giving to obtuse marginal and the PDA. 4. Right coronary artery, moderate in size, codominant. B. Hemodynamic aorta pressure 180/80. LV pressure 180/26. C. Left ventriculogram in the right anterior oblique view showed normal size with ventricle ejection fraction of 70%. IMPRESSION: 1. Mild CAD. 2. Hyperdynamic left ventricle with hypertrophy. 3. Codominant circulation. 4. Ejection fraction of 70%. COMPLICATIONS: None. BLOOD LOSS: None. RECOMMENDATIONS: Aggressive medical therapy. Job#: [id number] PUN
[2018-07-26] VITALS: BP 136/61
[2018-07-26 04:00] VITALS: BP_SYST 106; BP_SYST 123; BP_DIAS 60; BP_DIAS 64
[2018-07-26 05:27] LABS: BASOPHILS % 0.4 % (0.0-1.0); EOSINOPHILS % 0.2 % (0.0-6.0); HEMATOCRIT 38.9 % (34.2-44.1); HEMOGLOBIN 13.2 g/dL (12.0-16.0); LYMPHOCYTES # (AUTO) 1.5 (1.0-3.2); MEAN CORPUSCULAR HEMOGLOBIN 31.2 pg (28-32); MEAN CORPUSCULAR HGB CONC 33.9 g/dL (31-35); MONOCYTES # (AUTO) 0.3 (0.2-0.8); MONOCYTES % 6.6 % (4.4-11.3); NEUTROPHILS # (AUTO) 2.9 (2.1-6.9); NEUTROPHILS % 61.4 % (38.7-80.0); PLATELET COUNT 171 x10e3/uL (140-360); RED BLOOD COUNT 4.23 x10e6/uL (3.6-5.1); RED CELL DISTRIBUTION WIDTH 13.1 % (11.7-14.4)
[2018-07-26 05:41] LABS: CREATINE KINASE 32 IU/L (29-168)
[2018-07-26 06:01] LABS: ALANINE AMINOTRANSFERASE 24 IU/L (0-55); ALBUMIN 3.2 g/dL (3.5-5.0); ALBUMIN/GLOBULIN RATIO 1.3 (0.8-2.0); ALKALINE PHOSPHATASE 67 IU/L (40-150); ANION GAP 13.3 mmol/L (8-16); BLOOD UREA NITROGEN 6 mg/dL (7-26); BUN/CREATININE RATIO 11 (6-25); CALCIUM 8.3 mg/dL (8.4-10.2); CARBON DIOXIDE 21 mmol/L (22-29); CHLORIDE 109 mmol/L (98-107); CHOL/HDL RATIO 3.5 (3.0-3.6); CHOLESTEROL 177 MD/DL (0-199); CREATININE, SERUM 0.57 mg/dL (0.57-1.11); EST GLOMERULAR FILTRATION RATE > 60 ML/MIN (60-); GLUCOSE 93 mg/dL (74-118); HDL CHOLESTEROL 50 MG/DL (40-60); LDL CHOLESTEROL 109 MG/DL (60-130); POTASSIUM 3.3 mmol/L (3.5-5.1); SODIUM 140 mmol/L (136-145); TRIGLYCERIDES 88 MG/DL (0-149)
--- NOTE | 2018-07-26 07:15 | NUR ---
PT ALERT RESP EVEN AND UNLABORED AT THIS TIME, NO DISTRESS NOTED, NO C/O PAIN WHEN ASKED CALL LIGHT IN REACH.
[2018-07-26] MEDS: SODIUM CHLORIDE 0.9% 1000ML 1,000 ML IV SCH (08:30)
[2018-07-26 08:41] VITALS: BP 184/81
[2018-07-26] MEDS ORDERED: ASPIRIN 81 MG ENTERIC COATED PO SCH (09:00)
[2018-07-26] MEDS: FAMOTIDINE 20 MG/2 ML VIAL IV SCH (09:00)
[2018-07-26] MEDS ORDERED: LOSARTAN POTASSIUM 100 MG TAB PO SCH (09:00)
[2018-07-26] MEDS ORDERED: METOPROLOL TARTRATE 50 MG TAB PO SCH (09:00)
[2018-07-26] MEDS ORDERED: AMLODIPINE BESYLATE 5 MG TAB PO SCH ×2 (09:00)
[2018-07-26] MEDS ORDERED: POTASSIUM CHLORIDE 20 MEQ TAB CR PO ONE (09:30)
--- NOTE | 2018-07-26 11:41 | NUR ---
CASE MANAGEMENT INITIAL ASSESSMENT Instructor Warper to bedside to discuss plan of care with patient/family. CM/SW role and care transitions discussed. Anticipated discharge plan discussed along with duration of care. CM/SW discussed patients right to make decisions in care. CM/SW work hours given. Patient lives: IN OWN HOUSE WITH FAMILY Admit/Transfer: VIA HOME POA/Emergency contact: DAUGHTER CHAPIN NOVAK [phone] Current/Previous Home Health: NONE PCP/Follow-up Care: BREWRE Current/Previous DME: NONE Other Services: NONE Employment Status: [employer] Areas of Concerns: NONE Referral Needs: NONE Education Needs: ASKED ABOUT WHEELCHAIR STICKER FOR CAR, EDUCATED THAT WOULD NEED TO GET FORM FROM [facility] AND HAVE PRIMARY CARE FILL OUT AND RETURN TO [facility]. IMM/HUGHES given and signed (if applicable): NA Goal for discharge: RETURN HOME INDEPENDENTLY CM/SW left business card at the bedside with contact information. Name and number was also written on the patients whiteboard. Patient verbalized understanding of discussion. CM will follow-up with ongoing discharge and transition of care needs.
[2018-07-26] MEDS: CEFTRIAXONE SOD 1 GM/NS 50 ML 50 ML IV SCH ×2 (12:00)
--- NOTE | 2018-07-26 12:05 | History and Physical ---
CHIEF COMPLAINT: Chest pain. HISTORY OF PRESENT ILLNESS: This is a 63-year-old female, morbid obese, history of hypertension and hyperlipidemia, comes in to the ED with complaints of chest pain substernally. Patient reports that her chest pain radiates to her left shoulder and arm. Reported associated nausea and vomiting. She has never experienced anything like this before. 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 Does have risk factors as well. Patient is seen and evaluated at bedside on the medical floor, post cath now. Currently doing well with no other issues. Her cath was normal and no need for any intervention was needed. REVIEW OF SYSTEMS PERTINENT POSITIVE: Chest pain, nausea, and vomiting. PERTINENT NEGATIVE: Denies any palpitations, dysuria, hematuria, frequency, urgency, lightheadedness, dizziness, abdominal pain, headache, shortness of breath, cough, congestion, fever or any other complaints. The rest of the 14-point review of systems have been reviewed with the patient and are negative. ALLERGIES: NO KNOWN DRUG ALLERGIES. HOME MEDICATIONS 1. Amlodipine 5 mg. 2. Metoprolol 50 mg twice daily. 3. Atorvastatin 20 mg daily. PAST MEDICAL HISTORY: Hypertension, hyperlipidemia, morbid obesity, and right knee surgery. FAMILY HISTORY: There is a family history CAD, in which patient's family members from heart attacks, hypertension, and diabetes. SOCIAL HISTORY: No drugs. No alcohol. Does not smoke. Good social support. She is . LABORATORY DATA: Lab findings show white count is 4.7, hemoglobin 13, hematocrit 39, and platelets of 171. Chemistries; sodium 140, potassium 3.3, chloride 109, bicarb 21, BUN 6, creatinine 0.57, and glucose is 93. Her chemistries were all normal. LDL was 109. Lipase was 19. Her troponins were negative. Urinalysis was negative. MICROBIOLOGY: None. IMAGING STUDIES: CT brain was negative. CT abdomen and pelvis shows urinary bladder distention. Chest x-ray is negative. PHYSICAL EXAMINATION VITAL SIGNS: Temperature is 96.4, pulse 62, respiratory rate is 18, blood pressure is 184/81, and pulse ox 98% on 2 liters nasal cannula. GENERAL: Not in acute distress, alert and oriented x3, cooperative on examination. HEENT: Head is normocephalic and atraumatic. Eyes: Pupils are equal and reactive to light bilaterally. Extraocular movements are intact bilaterally. NECK: Supple. Good range of motion throughout. Throat; no evidence of any erythema or exudates in the posterior pharynx, has poor dentition. No to them exudates in the posterior pharynx has poor dentition. PULMONARY: Clear to auscultation bilaterally. No wheezing. No rales. No rhonchi. No crackles appreciated. CARDIOVASCULAR: Positive S1 and S2. No murmurs, rubs or gallops appreciated. ABDOMEN: Soft, nondistended, and nontender to palpation. Bowel sounds are present. MUSCULOSKELETAL: Strength is 5/5 throughout. No evidence of any musculoskeletal deficits on examination. No weakness appreciated. NEUROLOGIC: Cranial nerves II through XII are grossly intact. No evidence of any neurologic deficit on exam. SKIN: Intact. Warm to touch. Good cap refill. PSYCHIATRIC: Normal affect and mood. EXTREMITIES: Without edema. Good range of motion throughout. IMPRESSION 1. Chest pain, seems to be unstable in nature with unstable angina. 2. Morbid obesity. 3. Hyperlipidemia. 4. Hypertension. PLAN: At this time, cardiology was consulted. Patient underwent a left heart cath on July 25, 2018 and found to have normal coronaries with no PCI needed. Patient will be discharged on oral aspirin, statin, and cardioprotective meds. She will need to follow with outpatient cardiology in about 2 weeks' time. All her home medications have been resumed. Blood pressure is slightly elevated, for which we will adjust the antihypertensive medications. Lovenox for DVT prophylaxis. Heart-healthy diet. Job#: [id number] ANNY
[2018-07-26 12:31] VITALS: BP 136/65
--- NOTE | 2018-07-26 13:39 | NUR ---
pt discharged home via dr. Longoria and dr. Moya
--- NOTE | 2018-07-26 17:47 | Discharge Summary ---
FINAL DISCHARGE DIAGNOSES 1. Chest pain, status post left heart catheterization with no percutaneous coronary intervention needed, but medical management. 2. Morbid obesity. 3. Hyperlipidemia. 4. Hypertension. CONSULTANTS: Cardiology. VITAL SIGNS: Temperature is 96.4, pulse 62, respiratory rate is 18, blood pressure 184/81, pulse ox 98% on room air. LABS: White count 4.7, hemoglobin 13, hematocrit 39, platelets of 171. Coagulation: PT 12, INR 0.86, PTT 24. Chemistry: Sodium 140, potassium 3.3, chloride 109, anion gap of 13, BUN is 6, creatinine is 0.57. Lactic acid is normal. Calcium is normal. LFTs were normal. LDL was 109. Lipase was normal. Urinalysis was negative. MICROBIOLOGY: None. IMAGING STUDIES: Chest x-ray was found to be negative. CT abdomen and pelvis was also negative and CT brain was also negative. HOSPITAL COURSE: This is a 63-year-old female who came into the ED with complaints of substernal chest pain. Cardiology was consulted. Patient underwent a left heart cath with coronary angiogram on July 25, 2018. Patient did well during the procedure. There was no stent placement or any PCI needed according to the foundation engineer noted. Patient was cleared by cardiology for discharge. She will need to followup very closely with cardiology as an outpatient. She will be discharged on cardioprotective meds o as well as aspirin and statin upon discharge with LEA inhibitor. On discharge, patient denies any chest pain or any other complaints. Patient was cleared by cardiology for discharge home. On the day of discharge, vital signs stable, labs remained stable. Patient was seen and evaluated and examined thoroughly on the day of discharge and no other complaints. Patient verbalized an understanding and agrees to the plan of care, to follow up accordingly as an outpatient with primary care physician in 1 week's time and cardiology in 2 weeks' time. MEDICATIONS: See med reconciliation form. DISPOSITION: Home. CONDITION: Stable. DIET: Heart-healthy. In the event of any worsening symptoms, the patient was advised to come back to the ED for further evaluation. Discharge summary took greater than 35 minutes. GRACIE MARTIN MD Job#: [id number] TYRON
[2018-07-26] MEDS ORDERED: ATORVASTATIN 20 MG TAB PO SCH (21:00)
== END 2018-07-26 14:00 | disposition home or self-care (01) ==
LOC: EDBD 07:51 → ER 07:51 → ERHOLD 11:18 → IMCU 14:08
PROVIDERS: ADMIT Internal Medicine; ATTEND Internal Medicine
DX: I25.110 Atherosclerotic heart disease of native coronary artery with unstable angina pectoris (principal); R10.32 Left lower quadrant pain; I10 Essential (primary) hypertension; E78.5 Hyperlipidemia, unspecified; E03.9 Hypothyroidism, unspecified; Z82.49 Family history of ischemic heart disease and other diseases of the circulatory system; Z83.3 Family history of diabetes mellitus; Z68.35 Body mass index [BMI] 35.0-35.9, adult; E66.9 Obesity, unspecified
CPT/HCPCS: 36415 ×2; 70450; 71045; 74177; 80053 ×2; 80061; 81001; 82150; 82550 ×2; 82553 ×2; 83605; 83690; 83735; 83880; 84484 ×2; 85025 ×2; 85610; 85730; 93005; 93458; 96365; 99284; C1766; G0378 ×2; J0360; J0696 ×2; J2001; J2250; J2405; J7030; Q9967

== ENCOUNTER 2018-09-02 11:11 | Inpatient (IN) | payer BC, OTHER ==
[~2018-09-02] VITALS: Ht 157.5 cm; Wt 84.4 kg
[~2018-09-02 11:11] MED LIST: AMLODIPINE BESYL5 MG PO; ATORVASTATIN CA20 MG PO; METOPROLOL TART50 MG PO
--- OUTSIDE RECORDS SUMMARY | 2018-09-02 11:13 | XMS REPORT | Clinical Summary ---
Author Author [facility] Organization [facility] Address Unknown Phone Unavailable Care Team Providers Care Sandwich Maker Name Role Phone Rosa Severino MD PCP [...] nightly unspecified as needed for Anxiety. KEN# [id number], SHAYY LICENSE# [id number], UPIN [id number], NPI# [id number], DPS#[id number], TPI#[id number] 11/14/2017 Discontinued cyclobenzaprine Take 1 tablet 50 [...] pain 11/14/2017 Office Visit Family Practice after 09/01/2017 Immunizations Name Dates Previously Given Next Due [...] Body Mass Index 34.53 Plan of Treatment Health Maintenance Due Date Last Done Comments [...] AM CDT pain Left arm numbness after 09/01/2017 Results * XRAY SPINE LUMBOSACRAL AP-LAT (11/14/2017 [...] MD, 11/14/2017 11:42 AM Performing Organization Address [facility] Phone Number SMS * UA CHEMISTRIES (11/14/2017 10:04 AM CDT) Color Yellow BT MAIN-STATION 3 Clarity Hazy BT MAIN-STATION 3 Spec [place] 1.018 1.001 - 1.035 BT MAIN-STATION 3 [...] MAIN-STATION 3 Specimen Urine Performing Organization Address [facility] Phone Number MISYS BT MAIN-STATION 3 * URINE DRUG SCREEN (11/14/2017 10:04 AM CDT) Amphetamine Negative NEG BT MAIN-STATION Comment: 2 Calibrated Standard: D-Methamphetamine Positive if urine level >ez=0768 ng/mL Test performed on [id number] using EMIT Immunoassay Barbiturate Negative NEG BT MAIN-STATION Comment: 2 Calibrated Standard: Secobarbital Positive if urine level is >og=513 ng/mL Test performed on [id number] using EMIT Immunoassay Benzodiazepine Negative NEG BT MAIN-STATION Comment: 2 Calibrated Standard: Lormethazepam Positive if urine level is >uj=902 ng/mL Test performed on [id number] using EMIT Immunoassay Cannabinoid Negative NEG BT MAIN-STATION Comment: 2 Calibrated Standard: 11 nor-delta(9)-THC carboxylic a Positive if urine level >or=50 Test performed on [id number] using EMIT Immunoassay Cocaine Negative NEG BT MAIN-STATION Comment: 2 Calibrated Standard: Benzoylecgonine Positive if urine level >tc=037 Test performed on [id number] using EMIT Immunoassay Opiate, Ur Negative NEG BT MAIN-STATION Comment: 2 Calibrated Standard: Morphine Positive if urine level >kv=206 Test performed on [id number] using EMIT Immunoassay PCP Negative NEG BT MAIN-STATION Comment: 2 Calibrated Standard: Phencyclidine Positive if urine level >or=25 Test performed on [id number] using EMIT Immunoassay Urine Toxicology Screen results are to be used only for Medical purposes. Specimen Urine Performing Organization Address [facility] Phone Number [facility] BT [facility]IN-[facility] 2 * HEPATITIS B SURFACE AB (11/14/2017 10:03 AM CDT) HBsAb Negative NEG BT MAIN-STATION 3 HBsAb <4.20 BT MAIN-STATION Concentration Negative: <8.00 mIU/mL 3 Grayzone: > or=8.00 mIU/mL to <12.00 mIU/mL Positive: > or=12.00 mIU/mL Specimen Blood Performing Organization Address [facility] Phone Number [facility] BT [facility]IN-STATION 3 * SYPHILIS SCREEN FOR INFECTION (11/14/2017 10:03 AM CDT) Treponemal Ab Negative BT DIAGNOSTIC IMMUNOLOGY Final Report Negative BT DIAGNOSTIC IMMUNOLOGY Performing Organization Address [facility] Phone Number MISJOSE M BT DIAGNOSTIC IMMUNOLOGY * HIV-1/HIV-2 ROUTINE SCREENING (11/14/2017 10:03 AM CDT) HIV-1/HIV-2 Negative NEG BT MAIN-STATION 3 Performing Organization Address [facility] Phone Number [facility] BT [facility]IN-ST[facility] 3 * HBV CORE AB, IGG/IGM (11/14/2017 10:03 AM CDT) Hep B Core Ab, Negative LABORATORY IgM Reference range: Negative [employer] [place] Hep B Core Ab, Negative LABORATORY Tot Reference range: Negative [employer] [place] Specimen Blood Performing Organization Address [facility] Phone Number [facility] [address] [place] [address] [place] 145 * HEMOGLOBIN A1C (11/14/2017 10:03 AM CDT) Hemoglobin A1c 5.8 4.3 - 6.1 % [facility] Est Average 119.8 mg/dL [facility] Gluc Specimen Blood Performing Organization Address City/[facility] Phone Number [facility] * TSH (11/14/2017 10:03 AM CDT) TSH 4.71 0.45 - 5.33 uIU/mL BT MAIN-STATION 4 Specimen Blood Performing Organization Address [facility] Phone Number MISYS BT MAIN-STATION 4 * VITAMIN B12 (11/14/2017 10:03 AM CDT) Vitamin B12 272 211 - 911 pg/mL BT MAIN-STATION 4 Specimen Blood Performing Organization Address [facility] Phone Number MISYS BT MAIN-STATION 4 * HEP B SAVANAH AG (11/14/2017 10:03 AM CDT) HBsAg Negative NEG BT MAIN-STATION 3 Specimen Blood Performing Organization Address [facility] Phone Number [facility] BT [facility]IN-STATION 3 * SED RATE (11/14/2017 10:03 AM CDT) Sed Rate 20 <30 mm/Hr BT MAIN-STATION 3 Specimen Blood Performing Organization Address [facility] Phone Number [facility] BT [facility]IN-STATION 3 * T PROTEIN (11/14/2017 10:03 AM CDT) T Protein 7.7 6.0 - 8.3 g/dL BT MAIN-STATION 4 Performing Organization Address [facility] Phone Number [facility] BT [facility]IN-STATION 4 * LIPID PROFILE (11/14/2017 10:03 AM CDT) Cholesterol 252 mg/dL BT MAIN-STATION Comment: 4 REFERENCE RANGE: Desirable: <200 mg/dL Borderline: 200-240 mg/dL High Risk: >240 mg/dL Triglyceride 159 (H) <150 mg/dL BT MAIN-STATION Comment: 4 REFERENCE RANGE: Normal: <150 mg/dL Borderline High: 150-199 mg/dL High: 200-499 mg/dL Very High: >qc=327 mg/dL HDL 51 mg/dL BT MAIN-STATION Comment: 4 Increased CHD risk: <40 mg/dL Decreased CHD risk: >60 mg/dL LDL 169 mg/dL BT MAIN-STATION Comment: 4 REFERENCE RANGE: Optimal: <100 mg/dL Near Optimal: 100-129 mg/dL Borderline High: 130-159 mg/dL High: 160-189 mg/dL Very High: >qr=597 mg/dL Specimen Blood Performing Organization Address City/State/Zipcode Phone Number [facility]IN-STATION 4 * HEP C VIR AB IGG (11/14/2017 10:03 AM CDT) HCV IgG Negative NEG MAIN-STATION 3 Specimen Blood Performing Organization Address City/[facility]/Zipcode Phone Number [facility]IN-STATION 3 * ELECTROPH, BLD (11/14/2017 10:03 AM CDT) Pathologist [facility] Protein 7.7 g/dL DIAGNOSTIC IMMUNOLOGY Comment Electronically signed out by: DIAGNOSTIC Lorena Junior, IMMUNOLOGY M.D.,Ph.D./[id number] I have personally reviewed the relevant preparations and agree with the resident's/fellow's prelimanary interpretation. (note) INTERPRETATION: Increased albumin and total protein consistent with dehydration. Specimen Blood Performing Organization Address [facility]/Zipcode Phone Number [facility]UN[facility] * CBC/DIFF (11/14/2017 10:03 AM CDT) WBC 4.0 (L) 4.5 - 11.0 K/uL [facility] RBC 4.54 4.20 - 5.40 M/uL [facility] Hemoglobin 14.6 12.0 - 16.0 g/dL [facility] Hematocrit 43.2 37.0 - 47.0 % [facility] MCV 95 (H) 82 - 92 fL [facility] MCH 32.2 (H) 27.0 - 32.0 pg [facility] MCHC 33.8 32.0 - 36.0 g/dL [facility] RDW 45.5 36.4 - 46.3 fL [facility] Platelet 213 150 - 400 K/uL [facility] Neutrophil 51.3 34.0 - 70.0 % [facility] Lymphocyte 40.3 20.0 - 50.0 % [facility] Monocyte 6.4 5.0 - 12.0 % [facility] Eosinophil 1.5 0.7 - 5.0 % [facility] Basophil 0.5 0.1 - 1.2 % [facility] Neutrophil, Abs 2.07 1.56 - 6.13 K/uL [facility] Lymphocyte, Abs 1.63 1.18 - 3.74 K/uL [facility] Monocyte, Abs 0.26 0.24 - 0.36 K/uL [facility] Eosinophil, Abs 0.06 0.04 - 0.36 K/uL [facility] Basophil, Abs 0.02 0.01 - 0.08 K/uL [facility] Specimen Blood Performing Organization Address [facility] Phone Number [facility] * BASIC METABOLIC PANEL (11/14/2017 10:03 AM CDT) CO2 29 21 - 31 mmol/L BT [...] Afr-Am 4 Specimen Blood Performing Organization Address [facility] Phone Number [facility] BT MAIN-STATION 4 * ALT/AST (11/14/2017 10:03 AM CDT) ALT 26 7 - 52 U/L BT MAIN-STATION 4 AST 18 13 - 39 U/L BT MAIN-STATION 4 Specimen Blood Performing Organization Address [facility] Phone Number [facility] BT MAIN-STATION 4 * ENZO (11/14/2017 10:03 AM CDT) ENZO Screen Negative NEG BT DIAGNOSTIC IMMUNOLOGY Specimen Blood Performing Organization Address [facility] Phone Number [facility] BT DIAGNOSTIC IMMUNOLOGY * 12 LEAD EKG (11/14/2017 8:59 AM CDT) [address] 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 :[id number] 04-24 Requested By: Order Number: Juan douglas MD: Brittny Leblanc Measurements Intervals [place] Rate: 56 P:43 KS: 178 QRS: -6 QRSD: 84 T:4 QT: 470 QTc:453 Interpretive Statements Sinus bradycardia Moderate voltage criteria for LVH, may be normal variant Borderline ECG Electronically Signed On 11-14-17 10:02:48 CDT by Brittny Leblanc Performing Organization Address City/State/Zipcode Phone Number SMS after 09/01/2017 Insurance Type Payer Benefit Subscriber ID Effective Phone Address Plan / Dates Group BC/BS BCBS O xxxxxxxxxxxx 2018-P [phone] [address] [place] [address]
[2018-09-02] MEDS ORDERED: MORPHINE SULFATE 2 MG/ML SYR 1ML IV STA (11:52)
[2018-09-02] MEDS ORDERED: ONDANSETRON HCL INJ 2MG/ML 2ML 2 MG/ML VIAL IV STA (11:52)
[2018-09-02] MEDS ORDERED: MORPHINE SULFATE INJ 4 MG/ML INJ 1ML IV NR (12:00)
[2018-09-02 12:18] LABS: BASOPHILS % 0.4 % (0.0-1.0); EOSINOPHILS % 0.1 % (0.0-6.0); HEMOGLOBIN 14.3 g/dL (12.0-16.0); LYMPHOCYTES # (AUTO) 1.3 (1.0-3.2); LYMPHOCYTES % 11.9 % (18.0-39.1); MEAN CORPUSCULAR HEMOGLOBIN 31.4 pg (28-32); MEAN CORPUSCULAR HGB CONC 33.3 g/dL (31-35); MEAN CORPUSCULAR VOLUME 94.5 fL (81-99); MONOCYTES # (AUTO) 0.6 (0.2-0.8); MONOCYTES % 5.2 % (4.4-11.3); PLATELET COUNT 202 x10e3/uL (140-360); RED BLOOD COUNT 4.55 x10e6/uL (3.6-5.1); RED CELL DISTRIBUTION WIDTH 13.3 % (11.7-14.4)
[2018-09-02 12:22] LABS: INR 0.92; PROTHROMBIN TIME 13.2 seconds (11.9-14.5)
[2018-09-02 12:32] LABS: ALANINE AMINOTRANSFERASE 29 IU/L (0-55); ALBUMIN 3.8 g/dL (3.5-5.0); ALBUMIN/GLOBULIN RATIO 1.5 (0.8-2.0); ALKALINE PHOSPHATASE 96 IU/L (40-150); ANION GAP 14.7 mmol/L (8-16); BLOOD UREA NITROGEN 12 mg/dL (7-26); BUN/CREATININE RATIO 17 (6-25); CARBON DIOXIDE 23 mmol/L (22-29); CHLORIDE 106 mmol/L (98-107); CREATININE, SERUM 0.69 mg/dL (0.57-1.11); EST GLOMERULAR FILTRATION RATE > 60 ML/MIN (60-); GLUCOSE 121 mg/dL (74-118); POTASSIUM 3.7 mmol/L (3.5-5.1); SODIUM 140 mmol/L (136-145)
[2018-09-02] MEDS ORDERED: ONDANSETRON HCL INJ 2MG/ML 2ML 2 MG/ML VIAL IV PRN (13:45)
[2018-09-02] MEDS ORDERED: MORPHINE SULFATE 2 MG/ML SYR 1ML IV PRN (13:45)
--- NOTE | 2018-09-02 13:45 | Diagnostic Imaging Report ---
BILATERAL HIPS - 5 Images HISTORY: Fall, right hip pain COMPARISON: None available. FINDINGS: Bones: Diffusely decreased mineralization of the osseous structures limits bone detail. A comminuted basicervical/intertrochanteric fracture involving the proximal right femur. Minimal medial impaction and lateral distraction. Joints: Mild multifocal degenerative changes. Soft tissues: Mild regional soft tissue swelling. IMPRESSION: 1. Acute, comminuted, right femoral basicervical/intertrochanteric fracture. 2. Diffuse osseous demineralization. Discussed with ANGELO Phillips via phone on September 02, 2018 at 1338. The provider verbalizes an understanding. Signed by: Dr. Jah Keating D.O., M.M.M. on 09/02/2018 1:42 PM
--- OUTSIDE RECORDS SUMMARY | 2018-09-02 14:19 | XMS REPORT | Clinical Summary ---
Author Author [facility] Organization [facility] Address Unknown Phone Unavailable Care Team Providers Care Steam Pan Sponger Name Role Phone Rosa Severino MD PCP [...] nightly unspecified as needed for Anxiety. KEN# [id number], SHAYY LICENSE# [id number], UPIN [id number], NPI# [id number], DPS#[id number], TPI#[id number] 11/14/2017 Discontinued cyclobenzaprine Take 1 tablet 50 [...] MD, 11/14/2017 11:42 AM Performing Organization Address [facility] Phone Number SMS * UA CHEMISTRIES (11/14/2017 10:04 AM CDT) Color Yellow BT MAIN-STATION 3 Clarity Hazy BT MAIN-STATION 3 Spec [place] 1.018 1.001 - 1.035 BT MAIN-STATION 3 [...] MAIN-STATION 3 Specimen Urine Performing Organization Address [facility] Phone Number MISYS BT MAIN-STATION 3 * URINE DRUG SCREEN (11/14/2017 10:04 AM CDT) Amphetamine Negative NEG BT MAIN-STATION Comment: 2 Calibrated Standard: D-Methamphetamine Positive if urine level >im=4897 ng/mL Test performed on [id number] using EMIT Immunoassay Barbiturate Negative NEG BT MAIN-STATION Comment: 2 Calibrated Standard: Secobarbital Positive if urine level is >vl=114 ng/mL Test performed on [id number] using EMIT Immunoassay Benzodiazepine Negative NEG BT MAIN-STATION Comment: 2 Calibrated Standard: Lormethazepam Positive if urine level is >cc=596 ng/mL Test performed on [id number] using EMIT Immunoassay Cannabinoid Negative NEG BT MAIN-STATION Comment: 2 Calibrated Standard: 11 nor-delta(9)-THC carboxylic a Positive if urine level >or=50 Test performed on [id number] using EMIT Immunoassay Cocaine Negative NEG BT MAIN-STATION Comment: 2 Calibrated Standard: Benzoylecgonine Positive if urine level >ti=811 Test performed on [id number] using EMIT Immunoassay Opiate, Ur Negative NEG BT MAIN-STATION Comment: 2 Calibrated Standard: Morphine Positive if urine level >gg=265 Test performed on [id number] using EMIT Immunoassay PCP Negative NEG BT MAIN-STATION Comment: 2 Calibrated Standard: Phencyclidine Positive if urine level >or=25 Test performed on [id number] using EMIT Immunoassay Urine Toxicology Screen results are to be used only for Medical purposes. Specimen Urine Performing Organization Address [facility] Phone Number [facility] BT [facility] 2 * HEPATITIS B SURFACE AB (11/14/2017 10:03 AM CDT) HBsAb Negative NEG BT MAIN-STATION 3 HBsAb <4.20 BT MAIN-STATION Concentration Negative: <8.00 mIU/mL 3 Grayzone: > or=8.00 mIU/mL to <12.00 mIU/mL Positive: > or=12.00 mIU/mL Specimen Blood Performing Organization Address [facility] Phone Number [facility] BT [facility]IN-ST[facility] 3 * SYPHILIS SCREEN FOR INFECTION (11/14/2017 10:03 AM CDT) Treponemal Ab Negative BT DIAGNOSTIC IMMUNOLOGY Final Report Negative BT DIAGNOSTIC IMMUNOLOGY Performing Organization Address [facility] Phone Number MISJOSE M BT DIAGNOSTIC IMMUNOLOGY * HIV-1/HIV-2 ROUTINE SCREENING (11/14/2017 10:03 AM CDT) HIV-1/HIV-2 Negative NEG BT MAIN-STATION 3 Performing Organization Address [facility] Phone Number [facility] BT [facility]IN-ST[facility] 3 * HBV CORE AB, IGG/IGM (11/14/2017 10:03 AM CDT) Hep B Core Ab, Negative LABORATORY IgM Reference range: Negative [employer] OF [place] Hep B Core Ab, Negative LABORATORY Tot Reference range: Negative [employer] OF [place] Specimen Blood Performing Organization Address [facility] Phone Number [facility] [address] [place] [address] [place] 145 * HEMOGLOBIN A1C (11/14/2017 10:03 AM CDT) Hemoglobin A1c 5.8 4.3 - 6.1 % [facility] Est Average 119.8 mg/dL [facility] Gluc Specimen Blood Performing Organization Address City/[facility] Phone Number [facility] * TSH (11/14/2017 10:03 AM CDT) TSH 4.71 0.45 - 5.33 uIU/mL BT MAIN-STATION 4 Specimen Blood Performing Organization Address [facility] Phone Number MISYS BT MAIN-STATION 4 * VITAMIN B12 (11/14/2017 10:03 AM CDT) Vitamin B12 272 211 - 911 pg/mL BT MAIN-STATION 4 Specimen Blood Performing Organization Address [facility] Phone Number MISYS BT MAIN-STATION 4 * HEP B SAVANAH AG (11/14/2017 10:03 AM CDT) HBsAg Negative NEG BT MAIN-STATION 3 Specimen Blood Performing Organization Address [facility] Phone Number [facility] BT [facility]ATION 3 * SED RATE (11/14/2017 10:03 AM CDT) Sed Rate 20 <30 mm/Hr BT MAIN-STATION 3 Specimen Blood Performing Organization Address [facility] Phone Number [facility] BT [facility]IN-STATION 3 * T PROTEIN (11/14/2017 10:03 AM CDT) T Protein 7.7 6.0 - 8.3 g/dL BT MAIN-STATION 4 Performing Organization Address [facility] Phone Number [facility] BT [facility]IN-STATION 4 * LIPID PROFILE (11/14/2017 10:03 AM CDT) Cholesterol 252 mg/dL BT MAIN-STATION Comment: 4 REFERENCE RANGE: Desirable: <200 mg/dL Borderline: 200-240 mg/dL High Risk: >240 mg/dL Triglyceride 159 (H) <150 mg/dL BT MAIN-STATION Comment: 4 REFERENCE RANGE: Normal: <150 mg/dL Borderline High: 150-199 mg/dL High: 200-499 mg/dL Very High: >fu=004 mg/dL HDL 51 mg/dL BT MAIN-STATION Comment: 4 Increased CHD risk: <40 mg/dL Decreased CHD risk: >60 mg/dL LDL 169 mg/dL BT MAIN-STATION Comment: 4 REFERENCE RANGE: Optimal: <100 mg/dL Near Optimal: 100-129 mg/dL Borderline High: 130-159 mg/dL High: 160-189 mg/dL Very High: >fv=038 mg/dL Specimen Blood Performing Organization Address City/State/Zipcode Phone Number [facility] 4 * HEP C VIR AB IGG (11/14/2017 10:03 AM CDT) HCV IgG Negative NEG MAIN-STATION 3 Specimen Blood Performing Organization Address City/[facility]/Zipcode Phone Number [facility]IN-[facility] 3 * ELECTROPH, BLD (11/14/2017 10:03 AM CDT) Pathologist [facility] Protein 7.7 g/dL DIAGNOSTIC IMMUNOLOGY Comment Electronically signed out by: DIAGNOSTIC Lorena Junior, IMMUNOLOGY M.D.,Ph.D./[id number] I have personally reviewed the relevant preparations and agree with the resident's/fellow's prelimanary interpretation. (note) INTERPRETATION: Increased albumin and total protein consistent with dehydration. Specimen Blood Performing Organization Address [facility]/Zipcode Phone Number [facility] * CBC/DIFF (11/14/2017 10:03 AM CDT) WBC 4.0 (L) 4.5 - 11.0 K/uL [facility] RBC 4.54 4.20 - 5.40 M/uL [facility] Hemoglobin 14.6 12.0 - 16.0 g/dL [facility] Hematocrit 43.2 37.0 - 47.0 % [facility] MCV 95 (H) 82 - 92 fL [facility] MCH 32.2 (H) 27.0 - 32.0 pg [facility] MCHC 33.8 32.0 - 36.0 g/dL [facility] RDW 45.5 36.4 - 46.3 fL [...] Lymphocyte, Abs 1.63 1.18 - 3.74 K/uL [facility] Monocyte, Abs 0.26 0.24 - 0.36 K/uL [facility] Eosinophil, Abs 0.06 0.04 - 0.36 K/uL [facility] Basophil, Abs 0.02 0.01 - 0.08 K/uL [facility] Specimen Blood Performing Organization Address City/[facility] Phone Number [facility] * BASIC METABOLIC PANEL (11/14/2017 10:03 [...] Afr-Am 4 Specimen Blood Performing Organization Address [facility] Phone Number [facility] BT MAIN-STATION 4 * ALT/AST (11/14/2017 10:03 AM CDT) ALT 26 7 - 52 U/L BT MAIN-STATION 4 AST 18 13 - 39 U/L BT MAIN-STATION 4 Specimen Blood Performing Organization Address [facility] Phone Number [facility] BT MAIN-STATION 4 * ENZO (11/14/2017 10:03 AM CDT) ENZO Screen Negative NEG BT DIAGNOSTIC IMMUNOLOGY Specimen Blood Performing Organization Address [facility] Phone Number [facility] BT DI[facility]IC [facility] * 12 LEAD EKG (11/14/2017 8:59 AM CDT) 12 LEAD EKG FOR [facility] Test Date:2017-11-14 Pat Name: IRMA PISANOD epartment: Room: 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 :1956-0 04-24 Requested By: Order Number: Juan douglas MD: Brittny Leblanc Measurements Intervals [place] Rate: 56 P:43 MA: 178 QRS: -6 QRSD: 84 T:4 QT: 470 QTc:453 Interpretive Statements Sinus bradycardia Moderate voltage criteria for LVH, may be normal variant Borderline ECG Electronically Signed On 11-14-17 10:02:48 CDT by Brittny Leblanc Performing Organization Address City/State/Zipcode Phone Number SMS after 09/01/2017 Insurance Type Payer Benefit Subscriber ID Effective Phone Address Plan / Dates Group BC/BS BCBS O xxxxxxxxxxxx 2018-P [phone] [address] [place] [address]
--- NOTE | 2018-09-02 14:24 | Diagnostic Imaging Report ---
Exam: Right femur radiographs-4 views History: Right intertrochanteric fracture. Comparison: Right hip radiograph 09/02/2018. Findings: Again noted is an acute right femoral basicervical/intertrochanteric fracture, better characterized on same day hip radiographs. No additional fractures visualized within the right femur. There are moderate degenerative changes of the right knee. No evidence of suprapatellar effusion. Impression: Acute right femoral basicervical/intertrochanteric fracture, better characterized on same day hip radiographs. No additional fractures visualized within the right femur. Signed by: Dr. Drake Ortega MD on 09/02/2018 2:21 PM
[2018-09-02] MEDS: SODIUM CHLORIDE 0.9% 1000ML 1,000 ML IV SCH ×2 (14:25→21:54)
--- NOTE | 2018-09-02 14:40 | NUR ---
INDWELLING [facility]IAM[facility] CATH INSERTED ORDERED. PT TOLERATED WELL. DAUGHTER STAYED AT BEDSIDE DURING INSERTION FOR COMFORT AT PT'S REQUEST. INITIAL URINE OUTPUT 300 CC.
[2018-09-02 16:57] LABS: BILIRUBIN,URINE NEGATIVE (NEGATIVE); CLARITY,URINE SL CLOUDY (CLEAR); COLOR,URINE YELLOW (YELLOW); KETONES,URINE NEGATIVE (NEGATIVE); LEUKOCYTE ESTERASE ,URINE NEGATIVE (NEGATIVE); NITRITE,URINE NEGATIVE (NEGATIVE); PROTEIN,URINE DIPSTICK NEGATIVE (NEGATIVE); URINE UROBILINOGEN 0.2 mg/dL (0.2 - 1)
[2018-09-02 17:06] LABS: EPITHELIAL CELLS,URINE MODERATE /LPF; MUCUS,URINE MANY (RARE)
--- NOTE | 2018-09-02 18:44 | NUR ---
CONSULTATION - ORTHOPEDIC Patient is a 63 year old community ambulating female without assistive devices who presents to the ED after having a mechanical fall. She complains of only right hip pain and denies any significant pain in any other extremity. Denies numbness, paresthesias and loss of distal motor function. PMdHx: HTN, CAD, SurgHx: Cardiac Cath, Right Knee Partial Patellectomy Allergies: NKDA Meds: See Reconciliation FamHx: Non-contributory SocHx: Denies Tob, EtOh & Drugs VS 98.3 HR 70, RR 20, BP 167/85, O2 99% Alert Awake and Oriented x 4, NAD Right Lower Extremity Shortened Flexed, Externally rotated Motor: + EHL, FHL, TA, G/S Sensation grossly intact Pulse + DP, Post tib Compartments soft Negative calf tenderness No open lesions or sores No gross deformity of other extremities AROM without limitation Silva in place Xrays of Right hip demonstrate displaced right intertrochanteric hip fracture 63 year old F with Right hip intertrochanteric hip fracture Plan for Right hip IMN Analgesics DVT prophylaxis Bedrest NPO except meds after midnight IVF while NPO Follow up labs Pending medical clearance/optimization Hilda Mcdaniel, DO [facility]
[2018-09-02] MEDS ORDERED: HEPARIN SOD (PORCINE) 5,000 UNIT/ML VIAL SC NR (18:45)
--- NOTE | 2018-09-02 19:13 | NUR ---
Walking rounds with JOYCE Medina.
[2018-09-02 20:09] VITALS: BP 184/79
[2018-09-02] MEDS: MORPHINE SULFATE INJ 4 MG/ML INJ 1ML IV PRN (21:00)
--- NOTE | 2018-09-02 21:23 | Diagnostic Imaging Report ---
CHEST SINGLE (PORTABLE), 09/02/2018 6:45 PM Technique: CHEST SINGLE (PORTABLE) Comparison: None available. Clinical history: Preoperative, femur fracture Findings: See Impression Impression: 1. Slightly prominent cardiomediastinal silhouette, accentuated by portable technique. 2. Elevated right hemidiaphragm with mild overlying vascular crowding/atelectasis. 3. No effusion or pneumothorax. Signed by: Dr Katia Omalley MD on 09/02/2018 9:19 PM
[2018-09-03] VITALS (8 sets, daily range): BP systolic 156–193; BP diastolic 70–84
--- NOTE | 2018-09-03 | NUR ---
Spoke to doctor Longoria about patient having a systolic pressure of 165. Doctor stated it was normal for her to have high blood pressuring considering she was experiencing pain. Orders were given to restart her home medications since she had not taken them during the day.
[2018-09-03] MEDS: MORPHINE SULFATE INJ 4 MG/ML INJ 1ML IV PRN ×2 (04:59→22:24)
--- NOTE | 2018-09-03 05:00 | NUR ---
PATIENT C/O PAIN TO THE RIGHT LEG WITH PAIN SCORE #8, MEDICATED WITH MORPHINE AND ZOFRAN ORDERED. CALL LIGHT WITHIN EASY REACH, INSTRUCTED TO CALL FOR ASSISTANCE NEEDED. PRIMARY NURSE NOTIFIED THAT THE PATIENT WAS MEDICATED FOR PAIN AND NAUSEA.
[2018-09-03] MEDS: SODIUM CHLORIDE 0.9% 1000ML 1,000 ML IV SCH ×2 (06:31→16:46)
[2018-09-03 06:52] LABS: ANION GAP 12.9 mmol/L (8-16); BLOOD UREA NITROGEN 11 mg/dL (7-26); BUN/CREATININE RATIO 18 (6-25); CALCIUM 8.4 mg/dL (8.4-10.2); CARBON DIOXIDE 23 mmol/L (22-29); CHLORIDE 108 mmol/L (98-107); CREATININE, SERUM 0.62 mg/dL (0.57-1.11); EST GLOMERULAR FILTRATION RATE > 60 ML/MIN (60-); GLUCOSE 108 mg/dL (74-118); POTASSIUM 3.9 mmol/L (3.5-5.1); SODIUM 140 mmol/L (136-145)
[2018-09-03 07:51] LABS: BASOPHILS % 0.4 % (0.0-1.0); EOSINOPHILS % 0.6 % (0.0-6.0); HEMATOCRIT 38.3 % (34.2-44.1); HEMOGLOBIN 12.7 g/dL (12.0-16.0); LYMPHOCYTES # (AUTO) 1.7 (1.0-3.2); LYMPHOCYTES % 32.3 % (18.0-39.1); MEAN CORPUSCULAR HEMOGLOBIN 31.4 pg (28-32); MEAN CORPUSCULAR HGB CONC 33.2 g/dL (31-35); MEAN CORPUSCULAR VOLUME 94.8 fL (81-99); MONOCYTES # (AUTO) 0.5 (0.2-0.8); MONOCYTES % 8.6 % (4.4-11.3); NEUTROPHILS # (AUTO) 3.1 (2.1-6.9); NEUTROPHILS % 57.9 % (38.7-80.0); PLATELET COUNT 157 x10e3/uL (140-360); RED BLOOD COUNT 4.04 x10e6/uL (3.6-5.1); RED CELL DISTRIBUTION WIDTH 13.3 % (11.7-14.4)
[2018-09-03] MEDS ORDERED: AMLODIPINE BESYLATE 5 MG TAB PO SCH (09:00)
[2018-09-03] MEDS: METOPROLOL TARTRATE 50 MG TAB PO SCH ×3 (09:00→22:24)
[2018-09-03] MEDS: AMLODIPINE BESYLATE 10 MG TAB PO SCH (09:30)
[2018-09-03] MEDS: HYDRALAZINE HCL 20 MG/ML VIAL IV PRN ×2 (09:36→14:23)
--- NOTE | 2018-09-03 10:47 | NUR ---
Orders received from cyber instructor, but noticed that gela BOND is scheduling for surgery. Will hold PT eval until after surgery and orders received from gela BOND. Addendum: 09/03/18 at 1050 by Tere Trimble PT Amended: Links added.
--- NOTE | 2018-09-03 11:58 | History and Physical ---
CHIEF COMPLAINT: Mechanical fall leading to right femur fracture. HPI: This is a 63-year-old female who has a history of hypertension and hyperlipidemia who comes in after having a mechanical fall, landing on her right femur, found to have a femur fracture. Patient came in last month for chest pain rule out. Had extensive workup by Dr. Sung of cardiology. On that visit, the patient underwent a left heart cath, and no intervention was needed. Patient was then discharged on cardioprotective meds and medical management. Patient improved with no other issues. She reports yesterday she was walking and she sort of tripped and landed on her right femur. No reports of chest pain, palpitations, lightheadedness, dizziness, stroke-like symptoms or any seizure-like activity. Patient was seen and evaluated at bedside on the medical floor, currently doing well with no other issues at this time. REVIEW OF SYSTEMS Pertinent positives: Mechanical fall with right femur fracture. Pertinent negatives: Denies any chest pain, palpitations, nausea, vomiting, diarrhea, dysuria, hematuria, frequency, urgency, lightheadedness, dizziness, abdominal pain, headache, shortness of breath, cough, congestion, fever, or any other complaints. The rest of the 14-point review of systems have been reviewed with the patient and are negative. ALLERGIES: NO KNOWN DRUG ALLERGIES. HOME MEDICATIONS 1. Norvasc 5 mg daily. 2. Lipitor 20 mg at bedtime. 3. Toprol 50 mg p.o. b.i.d. PAST MEDICAL HISTORY: She has hypertension and hyperlipidemia. SURGICAL HISTORY: Reports none. FAMILY HISTORY: Hypertension and diabetes. SOCIAL HISTORY: No drugs. No alcohol. Does not smoke. Good social support. She works. VITAL SIGNS: Temperature is 97, pulse 72, respiratory rate 16, blood pressure 176/84, pulse ox 98% on room air. LAB FINDINGS: White count 5.3, hemoglobin 12, hematocrit 38, platelets 157. Coagulation: PT 13, INR 0.92, PTT 23. Chemistries: Sodium 140, potassium 3.9, chloride 108, bicarb 23, anion gap 11, creatinine 0.62, glucose 108, calcium 8.4. LFTs were normal. Urinalysis was negative. MICROBIOLOGY: None. IMAGING STUDIES: Hip x-ray shows acute comminuted right femoral trochanteric fracture. Chest x-ray was found to show slightly prominent cardiomediastinal silhouette accentuated by portable technique. The right hemidiaphragm with mild overlying vascular crowding and atelectasis. No effusion or pneumothorax. PHYSICAL EXAMINATION GENERAL: No acute distress. Alert and oriented x3. Cooperative on examination. HEENT: Head is normocephalic and atraumatic. Eyes: Pupils are equal and reactive to light bilaterally. Extraocular movements are intact bilaterally. NECK: Supple. Good range of motion. Throat with no evidence of any erythema or exudates in the posterior pharynx. Has poor dentition. PULMONARY: Clear to auscultation bilaterally. No wheezing. No rales. No rhonchi. No crackles appreciated. CARDIOVASCULAR: Positive S1, S2. No murmurs, rubs, or gallops appreciated. ABDOMEN: Soft, nondistended, and nontender to palpation. Bowel sounds are present. MUSCULOSKELETAL: Strength is 5/5 throughout. No evidence of any musculoskeletal deficit on examination. No weakness appreciated. NEUROLOGICAL: Cranial nerves II through XII are grossly intact. No evidence of any neurological deficits on exam. SKIN: Intact. Warm to touch. Good cap refill. PSYCHIATRIC: Normal affect and mood. EXTREMITIES: No edema. Good range of motion throughout. IMPRESSION 1. Right femur fracture due to mechanical fall. 2. Hypertension. 3. Hyperlipidemia. PLAN: Patient had extensive cardiac workup on the last admission with a left heart cath found to be negative with no intervention needed. At that time, the patient was cleared from a cardiology standpoint. That being said, the patient was cleared for surgery to be performed later today. Will continue with the same cardioprotective meds post surgery. She will be on Lovenox for DVT prophylaxis after surgery. PT and OT. Case management order has been placed for either inpatient rehab versus [facility] facility placement. I used a sales support consultant when I discussed this case with the patient at the bedside. Job#: [id number]
[2018-09-03] MEDS ORDERED: NIFEDIPINE CR 30 MG TAB PO ONE (12:30)
--- NOTE | 2018-09-03 12:30 | NUR ---
SPOKE WITH MD MARTIN REGARDING PT ELEVATED BP OF 193/84 NEW ORDERS RECEIVED
--- NOTE | 2018-09-03 15:53 | NUR ---
Met with pt and obtained choice for SNF: [facility]. Daughters at bedside. Notified Manpreet and faxed clinical.
[2018-09-03] MEDS ORDERED: BACITRACIN 50,000 UNIT VIAL ONE (16:00)
[2018-09-03] MEDS ORDERED: MIDAZOLAM HCL 2 MG/2 ML VIAL ONE (17:07)
[2018-09-03] MEDS ORDERED: FENTANYL CITRATE/PF 100MCG/2 ML INJ ONE (17:07)
[2018-09-03] MEDS ORDERED: ACETAMINOPHEN 1000 MG/100 ML IV SCH (18:00)
[2018-09-03] MEDS ORDERED: ACETAMINOPHEN 1000 MG/100 ML IV PRN (18:15)
--- NOTE | 2018-09-03 19:59 | NUR ---
DR. ZAID BRIONES HERE TO SEE PT. NEW ORDERS RCV FOR HEPARIN SC AND NPO AFTER MIDNIGHT.
[2018-09-03] MEDS ORDERED: HEPARIN SOD (PORCINE) 5,000 UNIT/ML VIAL SC ONE (20:00)
--- NOTE | 2018-09-03 20:21 | NUR ---
PROGRESS NOTE - ORTHOPEDICS Patient seen & examined resting in bed. Complains of right hip pain. No new pain. No numbness, paresthesias or loss of distal motor function. T 98.3, HR 103, RR 18, BP 156/72, O2 94% Right lower extremity - shortened, flexed, externally rotated Motor: + EHL, FHL, Ta, G/S Sensation grossly intact Pulses + DP, Post tib Compartments soft Negative calf tenderness 63 year old F with Right Intertrochanteric Hip Fracture Explained delay to OR with patient and due to unforeseen circumstances. Plan for OR in am for right hip IMN Analgesics PRN DVT Prophylaxis - one shot of Heparin now NPO except meds after midnight Hold Heparin & anticoagulation after midnight IVF while NPO Patient and aware and amendable to plan. All questions answered. DO [facility]IO [facility]
[2018-09-03] MEDS: ATORVASTATIN 20 MG TAB PO SCH (22:17)
[2018-09-04] VITALS: BP 136/57
[2018-09-04 04:00] VITALS: BP 134/62
[2018-09-04 05:21] LABS: BASOPHILS % 0.3 % (0.0-1.0); EOSINOPHILS % 0.5 % (0.0-6.0); HEMATOCRIT 38.1 % (34.2-44.1); LYMPHOCYTES # (AUTO) 1.4 (1.0-3.2); LYMPHOCYTES % 20.8 % (18.0-39.1); MEAN CORPUSCULAR HEMOGLOBIN 31.2 pg (28-32); MEAN CORPUSCULAR HGB CONC 34.1 g/dL (31-35); MEAN CORPUSCULAR VOLUME 91.4 fL (81-99); MONOCYTES # (AUTO) 0.6 (0.2-0.8); MONOCYTES % 8.5 % (4.4-11.3); NEUTROPHILS # (AUTO) 4.5 (2.1-6.9); NEUTROPHILS % 69.4 % (38.7-80.0); PLATELET COUNT 156 x10e3/uL (140-360); RED BLOOD COUNT 4.17 x10e6/uL (3.6-5.1); RED CELL DISTRIBUTION WIDTH 13.2 % (11.7-14.4)
[2018-09-04 05:48] LABS: ANION GAP 13.2 mmol/L (8-16); BLOOD UREA NITROGEN 8 mg/dL (7-26); BUN/CREATININE RATIO 15 (6-25); CALCIUM 8.7 mg/dL (8.4-10.2); CARBON DIOXIDE 22 mmol/L (22-29); CHLORIDE 104 mmol/L (98-107); CREATININE, SERUM 0.54 mg/dL (0.57-1.11); EST GLOMERULAR FILTRATION RATE > 60 ML/MIN (60-); GLUCOSE 107 mg/dL (74-118); POTASSIUM 3.2 mmol/L (3.5-5.1); SODIUM 136 mmol/L (136-145)
[2018-09-04] MEDS ORDERED: POTASSIUM CHLORIDE 20MEQ/100ML 200 ML IV STA (06:04)
--- NOTE | 2018-09-04 06:06 | NUR ---
SPOKE TO DR. MARTIN AT THIS TIME REGARDING PT POTASSIUM LEVEL READING 3.2. NEW ORDERS RCV FOR POTASSIUM 40MEQ IV
[2018-09-04] MEDS ORDERED: BACITRACIN 50,000 UNIT VIAL ONE (06:10)
--- NOTE | 2018-09-04 06:26 | NUR ---
PT OFF UNIT TO OR VIA BED. VITAL SIGNS STABLE. NEW IV STARTED TO RIGHT FA 20G. FIRST BAG OF KCL IV 20MEQ ADMINISTERED. 2ND BAG OF KCL IV 20MEQ GIVEN TO OR.
[2018-09-04] MEDS ORDERED: BUPIVACAINE 0.25% 30ML SDV INJ ONE (07:49)
[2018-09-04] MEDS ORDERED: AMLODIPINE BESYLATE 5 MG TAB PO SCH (09:00)
[2018-09-04] MEDS ORDERED: FENTANYL CITRATE/PF 100MCG/2 ML INJ ONE ×2 (09:01→20:11)
--- NOTE | 2018-09-04 09:35 | NUR ---
PT BACK FROM PROCEDURE AA0X3. PT HAS A RIGHT DRESSING ON HIP X2 . LOWER HAS MINIMAL BLOOD LEAKAGE EVIDENT (ESTIMATED 2X2) PT V/S TAKEN AND ARE W/IN NORMAL LIMITS. WILL CONTINUE TO CARE FOR PT AT THIS TIME . SIDE RAILSX2, BED WHEELS LOCKED ,CALL LIGHT IS WITHIN EASY REACH, WILL CONTINUE CARE AT THIS TIME
[2018-09-04 09:37] VITALS: BP 146/65
--- NOTE | 2018-09-04 10:05 | NUR ---
OPERATIVE NOTE - ORTHOPEDICS PREOPERATIVE DIAGNOSIS:Right HipIntertrochanteric hip fracture. POSTOPERATIVE DIAGNOSIS:Right Hip Intertrochanteric hip fracture OPERATION PERFORMED:Right Hip Intramedullary Nailing ESTIMATED BLOOD LOSS: [id number]. DRAINS: None. ANESTHESIA GIVEN:General COMPLICATIONS: None. IMPLANTS: 125deg 11mm x 180mm Usha Gamma 3 Trochanteric Nail, 10.5 x 90 mm Lag Screw, 5 x 35 mm Fully Threaded Locking Screw INDICATIONS FOR PROCEDURE: The patient is [id number], who sustained arightintertrochanteric hip fracture after a fall. Shewas admitted for a preoperative medical clearance and to be taken to the operating room for an intr amedullary nailing of Right hip fracture. Consent was signed on the chart. All risks and benefits regarding the procedure were explained: Risks of , infection, nerve or blood vessel injury or bleeding, need for blood transfusion, blood clots, failure to heal, need for further surgery were all explained and consent was signed. DESCRIPTION OF OPERATIVE PROCEDURE: The patient was given [id number] intravenously in the holding area. She with then taken to the operating room where generalanesthetic was placed by the anesthesia service on the hospital bed.Shewas then transferred over to the fracture table in the supine position where a well-padded post was positioned. The Left lower extremity had a SCDwas placed into the thigh/leg support with foam padding over all bony prominences. The Right lower extremity had abundant padding placed around the foot and ankle region and was then placed in the foot and ankle support. Next, theRighthip was visualized under AP and lateral fluoroscopic views. The femoral head and neck were well-visualized in both planes at this time. Next, the lefthip was prepped and draped in the usual sterile fashion utilizing Alcoh ol then Chloroprepfollowed by toweling out, followed by drying, followed by placement of a shower curtain. Next, a guidepin was placed over the hip and an AP fluoroscopic view taken to demarcate the height of the greater trochanter and a lateral to demarcate the direction of the femoral shaft and marked. Next, the proposed skin incision of [id number] in length was marked on the skin. The skin incision was then made with a #10 blade, going down through the skin and subcutaneous tissue. The IT-bandand hip abductors weresplit to the greater trochanter.A guide pin was inserted in adequate position which was confirmed on APand lateralimaging. An opening reamer was placed over the guide wire and pushed down to the lesser trochanter. A11 x180 mm 125 degreenail was introduced into the canal. Next a guide wire was placed in preparation for the lag screw. The wire was visualized in proper AP and Lateral position. The guidewire was measured to95mm. The neck and head were reamed over the guidewire and a 10.5 mm x 90mm Affixus Hip Fracture Nail Lag Screw was placed in adequate position. The fracture was then compressed reducing the fracture site nicely. The set screw was then placed. The distal screw wasthen focused on. Through the jig, the distal screw was drilled and a 5.0 x 35 mm screw was introduced to lock the screw distally.The guides were then removed, final imaging was obtained demonstrating the hardware in adequate position. The incisions were closed deep with vicryl and monocryl on the skin. The incisions were cleaned and dressed with an Aquacel dressing. The patient was then gently transferred back to the hospital bed and transferred to recovery without difficulty.
[2018-09-04] MEDS: METOPROLOL TARTRATE 50 MG TAB PO SCH ×2 (10:17→17:11)
[2018-09-04] MEDS: AMLODIPINE BESYLATE 10 MG TAB PO SCH (10:17)
--- NOTE | 2018-09-04 10:44 | Progress Note ---
DATE: September 04, 2018 MEDICINE PROGRESS NOTE SUBJECTIVE: Patient underwent right femur ORIF this morning. Patient is doing well. I saw her postoperatively. She is tolerating diet well. Pain is well controlled. OBJECTIVE VITAL SIGNS: Temperature is 96.4, pulse 71, respiratory rate 20, blood pressure is 146/65, pulse ox 94% on 2 L nasal cannula. GENERAL: Not in acute distress. Alert and oriented times 3. Cooperative on examination. HEENT: Head is normocephalic and atraumatic. Eyes: Pupils equal, round and reactive to light bilaterally. Extraocular movements intact bilaterally. NECK: Supple. Good range of motion. Throat with no evidence of any erythema or exudates in the posterior pharynx. Has poor dentition. PULMONARY: Clear to auscultation bilaterally. No wheezing. No rales. No rhonchi. No crackles appreciated. CARDIOVASCULAR: Positive S1 and S2. No murmurs, rubs or gallops appreciated. ABDOMEN: Soft, nondistended and nontender to palpation. Bowel sounds present. MUSCULOSKELETAL: Strength is 5/5 throughout. No evidence of any muscle deficit on examination. No weakness appreciated. NEUROLOGICAL: Cranial nerves II-XII are grossly intact. No evidence of any neurological deficits on exam. SKIN: Intact. Warm to touch. Good cap refill. PSYCHIATRIC: Normal affect and mood. EXTREMITIES: No edema. Good range of motion throughout. LAB FINDINGS: Show a white count is 6.4, hemoglobin 13, hematocrit 38, and platelets of 156,000. Coagulation: PT 13, INR 0.12, PTT 23. Chemistry: Sodium 136, potassium is 6.3, chloride 104, bicarb 22, anion gap of 13, BUN is 8, creatinine is 0.54. Calcium is 8.7. Urinalysis was negative. MICRO: None. IMAGING STUDIES: None. IMPRESSION 1. Status post right femur open reduction internal fixation performed this morning on September 04, 2018. 2. Hypertension. 3. Hyperlipidemia. PLAN: Will continue with postop care. Get a.m. labs tomorrow for any anemia. Put on Lovenox 40 mg subcutaneous daily. Repeat labs in the morning. PT and OT later today. Discussed with case management about placement in terms of inpatient rehab versus custodial facility. Job#: [id number] [place]
[2018-09-04] MEDS ORDERED: POTASSIUM CHLORIDE 20 MEQ TAB CR PO NR (10:45)
[2018-09-04 11:10] LABS: BASOPHILS % 0.1 % (0.0-1.0); HEMATOCRIT 38.4 % (34.2-44.1); HEMOGLOBIN 12.9 g/dL (12.0-16.0); LYMPHOCYTES # (AUTO) 0.9 (1.0-3.2); LYMPHOCYTES % 8.8 % (18.0-39.1); MEAN CORPUSCULAR HEMOGLOBIN 31.6 pg (28-32); MEAN CORPUSCULAR HGB CONC 33.6 g/dL (31-35); MEAN CORPUSCULAR VOLUME 94.1 fL (81-99); MONOCYTES # (AUTO) 0.6 (0.2-0.8); MONOCYTES % 6.3 % (4.4-11.3); NEUTROPHILS # (AUTO) 8.6 (2.1-6.9); NEUTROPHILS % 84.3 % (38.7-80.0); PLATELET COUNT 176 x10e3/uL (140-360); RED BLOOD COUNT 4.08 x10e6/uL (3.6-5.1); RED CELL DISTRIBUTION WIDTH 13.4 % (11.7-14.4)
[2018-09-04 11:27] LABS: BLOOD UREA NITROGEN 9 mg/dL (7-26); BUN/CREATININE RATIO 13 (6-25); CALCIUM 8.6 mg/dL (8.4-10.2); CARBON DIOXIDE 19 mmol/L (22-29); CHLORIDE 107 mmol/L (98-107); CREATININE, SERUM 0.68 mg/dL (0.57-1.11); EST GLOMERULAR FILTRATION RATE > 60 ML/MIN (60-); GLUCOSE 187 mg/dL (74-118); SODIUM 138 mmol/L (136-145)
[2018-09-04 12:05] VITALS: BP 137/67
--- NOTE | 2018-09-04 12:59 | NUR ---
RIGHT HIP DRESSING SATURATED WITH BLOOD ABOUT 75% . PLACED ABD PAD AND FOAM TAPE TO SECURE DRESSING INSTRUCTED BY MD BRIONES . NOTIFIED OF OCCURRENCE. FOR FURTHER ORDERS RECEIVED. WILL MONITOR CLOSELY
[2018-09-04] MEDS: CEFAZOLIN SOD 1 GM/NS 50ML 50 ML IV SCH ×2 (13:26→21:40)
[2018-09-04] MEDS ORDERED: KETOROLAC TROMETHAMINE 30 MG/ML VIAL ONE (16:08)
[2018-09-04] MEDS ORDERED: ONDANSETRON HCL INJ 2MG/ML 2ML 2 MG/ML VIAL ONE (16:08)
[2018-09-04] MEDS ORDERED: EPHEDRINE SULFATE INJ 50 MG/10 ML SYR ONE (16:08)
[2018-09-04] MEDS ORDERED: SEVOFLURANE INHAL SOLN 250 ML PEN BTL ONE (16:08)
[2018-09-04] MEDS ORDERED: CEFAZOLIN SOD 1 GM VIAL ONE (16:08)
[2018-09-04] MEDS ORDERED: LIDOCAINE HCL 2% LOCAL INJ 5 ML SDV VIAL INJ ONE (16:08)
[2018-09-04] MEDS ORDERED: PROPOFOL IV EMULSION 10 MG/ML 20 ML VIAL ONE (16:08)
[2018-09-04 16:23] VITALS: BP 150/65
[2018-09-04] MEDS ORDERED: ENOXAPARIN SOD INJ 40 MG/0.4 ML SYR SC SCH (17:00)
[2018-09-04] MEDS: ENOXAPARIN SOD INJ 40 MG/0.4 ML SYR SC SCH (17:11)
[2018-09-04 20:00] VITALS: BP 128/58
[2018-09-04] MEDS ORDERED: MIDAZOLAM HCL 2 MG/2 ML VIAL ONE (20:11)
[2018-09-04] MEDS: ATORVASTATIN 20 MG TAB PO SCH (21:40)
[2018-09-04] MEDS: MORPHINE SULFATE INJ 4 MG/ML INJ 1ML IV PRN (22:23)
[2018-09-05] VITALS (7 sets, daily range): BP systolic 129–160; BP diastolic 60–70
[2018-09-05 05:47] LABS: BASOPHILS % 0.3 % (0.0-1.0); EOSINOPHILS % 0.5 % (0.0-6.0); HEMATOCRIT 35.5 % (34.2-44.1); HEMOGLOBIN 11.9 g/dL (12.0-16.0); LYMPHOCYTES % 31.1 % (18.0-39.1); MEAN CORPUSCULAR HEMOGLOBIN 31.3 pg (28-32); MEAN CORPUSCULAR HGB CONC 33.5 g/dL (31-35); MEAN CORPUSCULAR VOLUME 93.4 fL (81-99); MONOCYTES # (AUTO) 0.7 (0.2-0.8); MONOCYTES % 11.3 % (4.4-11.3); NEUTROPHILS # (AUTO) 3.6 (2.1-6.9); NEUTROPHILS % 56.5 % (38.7-80.0); PLATELET COUNT 160 x10e3/uL (140-360); RED CELL DISTRIBUTION WIDTH 13.5 % (11.7-14.4)
[2018-09-05] MEDS: CEFAZOLIN SOD 1 GM/NS 50ML 50 ML IV SCH (06:01)
[2018-09-05 06:07] LABS: ANION GAP 13.8 mmol/L (8-16); BLOOD UREA NITROGEN 8 mg/dL (7-26); BUN/CREATININE RATIO 14 (6-25); CALCIUM 8.5 mg/dL (8.4-10.2); CARBON DIOXIDE 23 mmol/L (22-29); CHLORIDE 104 mmol/L (98-107); CREATININE, SERUM 0.56 mg/dL (0.57-1.11); EST GLOMERULAR FILTRATION RATE > 60 ML/MIN (60-); GLUCOSE 101 mg/dL (74-118); POTASSIUM 3.8 mmol/L (3.5-5.1); SODIUM 137 mmol/L (136-145)
[2018-09-05] MEDS: METOPROLOL TARTRATE 50 MG TAB PO SCH ×2 (10:30→17:53)
[2018-09-05] MEDS: AMLODIPINE BESYLATE 10 MG TAB PO SCH (10:30)
--- NOTE | 2018-09-05 10:30 | NUR ---
assessment complete no distress noted, updated on poc vocied understanding, co pain 11/12 medicated with prn, right hip dsg c/d/i, l ac 20g no ss of infiltration noted,no other co voiced call light in reach will continue ot monitor
[2018-09-05] MEDS: HYDROCODONE/APAP 5MG-325MG TAB PO PRN ×2 (10:40→17:54)
--- NOTE | 2018-09-05 11:18 | Progress Note ---
DATE: September 05, 2018 MEDICINE PROGRESS NOTE SUBJECTIVE: Patient is doing well today with no complaints. OBJECTIVE VITAL SIGNS: Temperature 97.1, pulse 66, respiratory rate 20, blood pressure 160/68, pulse ox 97% on room air. LAB FINDINGS: White count 6.4, hemoglobin 11.9, hematocrit 35, platelets 160. Coagulation: PT 29, INR 0.92, PTT 23. Chemistries: Sodium 137, potassium 3.8, chloride 104, bicarb 23, anion gap 13, BUN 8, glucose 101, calcium 8.5. MICROBIOLOGY: None. IMAGING STUDIES: None. PHYSICAL EXAMINATION GENERAL: Not in acute distress. Alert and oriented x3. Cooperative on examination. HEENT: Head is normocephalic and atraumatic. Eyes: Pupils are equal, round and reactive to light bilaterally. Extraocular movements intact bilaterally. NECK: Supple. Good range of motion. Throat with no evidence of any erythema or exudates in the posterior pharynx. Has poor dentition. PULMONARY: Clear to auscultation bilaterally. No wheezing. No rales. No rhonchi. No crackles appreciated. CARDIOVASCULAR: Positive S1 and S2. No murmurs, rubs or gallops appreciated. ABDOMEN: Soft, nondistended and nontender to palpation. Bowel sounds present. MUSCULOSKELETAL: Strength is 5/5 throughout. No evidence of any musculoskeletal deficit on examination. No weakness appreciated. NEUROLOGICAL: Cranial nerves II through XII are grossly intact. No evidence of any neurological deficits on exam. SKIN: Intact. Warm to touch. Good cap refill. PSYCHIATRIC: Normal affect and mood. EXTREMITIES: No edema. Good range of motion throughout. IMPRESSION 1. Status post right femur open reduction internal fixation performed on 09/04/2018. 2. Hypertension. 3. Hyperlipidemia. PLAN: At this time, it is postop day #1. The patient is working with PT and OT. Continue with Lovenox for DVT prophylaxis. Labs are stable and reviewed. Discussed with case management about [facility] facility [facility]. The patient picked [facility]. Waiting for insurance approval. Job#: [id number]
[2018-09-05] MEDS ORDERED: CITRATE OF MAGNESIA 300ML BOTTLE PO NR (11:30)
--- NOTE | 2018-09-05 13:51 | NUR ---
Frequency modified to 6 times a week.
--- NOTE | 2018-09-05 16:30 | NUR ---
RTF and PASRR placed in pt packet at nurses station. Copy of PASRR placed in chart. Awaiting for SNF auth to [facility]
[2018-09-05] MEDS: DOCUSATE SODIUM 100 MG CAP PO SCH (17:52)
[2018-09-05] MEDS: ENOXAPARIN SOD INJ 40 MG/0.4 ML SYR SC SCH (17:53)
--- NOTE | 2018-09-05 18:12 | NUR ---
iv infiltrated, 20gx 1 stick tolerated well,
--- NOTE | 2018-09-05 18:27 | NUR ---
PROGRESS NOTES - ORTHOPEDICS Patient seen & examined resting comfortably at bedside. Pain well controlled. Ambulated well with therapy. VS T 98.0, HR 67, RR 20, B 129/61, O2 Sat 98% Right hip - dressing clean, dry and intact - augmented Motor; + EHL, FHL, TA, G/S Sensation grossly intact Pulses + DP, Post tib Compartments soft Negative calf tenderness H/H 11.9/35.5 63 year old F s/p Right Hip IMN POD #1 Analgesics PRN DVT Prophylaxis PT - WBAT Plan for dressing change in AM Follow up AM labs Would like alternate option for discharge than [facility]. VALERIA Mcdaniel, DO [facility]
--- NOTE | 2018-09-05 18:40 | NUR ---
juliet dc'd as per ordered, pt tolerated well, pt dtv [id number]
--- NOTE | 2018-09-05 19:00 | NUR ---
received report from day nurse. patient is resting comfortably in bed. bed is in lowest position and call uriostegui is within reach. will continue to monitor patient.
[2018-09-05] MEDS: ATORVASTATIN 20 MG TAB PO SCH (20:39)
[2018-09-06] VITALS (8 sets, daily range): BP systolic 122–148; BP diastolic 59–87
[2018-09-06 06:33] LABS: BASOPHILS % 0.4 % (0.0-1.0); EOSINOPHILS # (AUTO) 0.1 (0.0-0.4); EOSINOPHILS % 1.5 % (0.0-6.0); HEMATOCRIT 33.9 % (34.2-44.1); HEMOGLOBIN 11.8 g/dL (12.0-16.0); LYMPHOCYTES # (AUTO) 1.5 (1.0-3.2); LYMPHOCYTES % 30.9 % (18.0-39.1); MEAN CORPUSCULAR HEMOGLOBIN 31.9 pg (28-32); MEAN CORPUSCULAR HGB CONC 34.8 g/dL (31-35); MEAN CORPUSCULAR VOLUME 91.6 fL (81-99); MONOCYTES # (AUTO) 0.4 (0.2-0.8); MONOCYTES % 9.4 % (4.4-11.3); NEUTROPHILS # (AUTO) 2.7 (2.1-6.9); NEUTROPHILS % 57.6 % (38.7-80.0); PLATELET COUNT 167 x10e3/uL (140-360); RED CELL DISTRIBUTION WIDTH 13.4 % (11.7-14.4)
--- NOTE | 2018-09-06 06:47 | NUR ---
Report given to day nurse. Patient is resting comfortably in bed. Bed is in lowest position and call uriostegui is within reach.
[2018-09-06 06:50] LABS: ANION GAP 13.4 mmol/L (8-16); BLOOD UREA NITROGEN 16 mg/dL (7-26); BUN/CREATININE RATIO 29 (6-25); CALCIUM 8.7 mg/dL (8.4-10.2); CARBON DIOXIDE 26 mmol/L (22-29); CHLORIDE 104 mmol/L (98-107); CREATININE, SERUM 0.55 mg/dL (0.57-1.11); EST GLOMERULAR FILTRATION RATE > 60 ML/MIN (60-); GLUCOSE 97 mg/dL (74-118); POTASSIUM 3.4 mmol/L (3.5-5.1); SODIUM 140 mmol/L (136-145)
--- NOTE | 2018-09-06 08:04 | NUR ---
Gracy Weber RN notified CM that Dr. Draper does not want his patient going to [facility], due to a unsatisfactory event one of his previous patients had there. CM and nurse Tami COOK spoke to patient and her daughter explaining this. Explained that the choice of SNF's is theirs, but we wanted to let them know their physician's concerns. They will speak with family, and give their decision to CM when made. CM updated pt nurse, Gracy Weber RN.
[2018-09-06] MEDS: AMLODIPINE BESYLATE 10 MG TAB PO SCH (10:55)
[2018-09-06] MEDS: DOCUSATE SODIUM 100 MG CAP PO SCH ×2 (10:55→18:14)
[2018-09-06] MEDS: HYDROCODONE/APAP 5MG-325MG TAB PO PRN (10:55)
[2018-09-06] MEDS: METOPROLOL TARTRATE 50 MG TAB PO SCH ×2 (10:55→18:14)
--- NOTE | 2018-09-06 10:55 | NUR ---
assessment complete no distress noted,updated on poc voiced understanding, co pain 01/12 to right hip medicated with prn meds, dsg to right hip c/d/i, r fa 20g no ss of infiltration noted, no other co voiced call light in reach will continue to monitor
--- NOTE | 2018-09-06 12:23 | Progress Note ---
DATE: September 06, 2018 MEDICINE PROGRESS NOTE SUBJECTIVE: Patient is doing well today with no other complaints. Still pending on fpc facility. OBJECTIVE VITAL SIGNS: Temperature is 97.7, pulse 62, respiratory rate is 20, blood pressure 140/67, pulse ox 96% on room air. GENERAL: Not in acute distress. Alert and oriented x3. Cooperative on examination. HEENT: Head is normocephalic and atraumatic. Eyes: Pupils equal, round and reactive to light bilaterally. Extraocular movements intact bilaterally. NECK: Supple. Good range of motion. Throat with no evidence of any erythema or exudates in the posterior pharynx. Has poor dentition. PULMONARY: Clear to auscultation bilaterally. No wheezing. No rales. No rhonchi. No crackles appreciated. CARDIOVASCULAR: Positive S1 and S2. No murmurs, rubs, or gallops appreciated. ABDOMEN: Soft, nondistended and nontender to palpation. Bowel sounds present. MUSCULOSKELETAL: Strength is 5/5 throughout. No evidence of any musculoskeletal deficit on examination. SKIN: Intact. Warm to touch. Good cap refill. PSYCHIATRIC: Normal affect and mood. EXTREMITIES: No edema. Good range of motion throughout. LAB FINDINGS: White count 4.6, hemoglobin 11.8, hematocrit is 34, platelets of 167. Sodium 140, potassium 3.4, chloride 104, bicarb 26, anion gap 13, BUN 16, creatinine is 0.55, glucose 97, calcium is 8.7. IMAGING STUDIES: None. IMPRESSION 1. Status post right femur open reduction and internal fixation performed on September 04, 2018 by orthopedics. 2. Hypertension. 3. Hyperlipidemia. PLAN: Her labs were reviewed and stable. This is postop day #2. Continue working on PT and OT. Then, we are going to choice them in terms of which fpc facility she will prefer to go. Once she is being approved, she will be ready to go to the fpc facility. Job#: [id number] JESUS
--- NOTE | 2018-09-06 14:13 | NUR ---
PROGRESS NOTE - ORTHOPEDICS Patient seen & examined ambulating well. Pain well controlled. no numbness, paresthesias or loss of distal motor function VS T 96.7 HR 79 RR BP 138/87 O2 98% RA Right hip - Incision healing well, no erythema drainage or signs of infection Motor:+ EHL, FHl, TA, G/S Sensation grossly intact Pulses + DP, post tib Compartment soft Negative calf tenderness Able to get up and rise out of chair quickly H/H 11.8/33.9 63 year old F s/p Right hip IMN POD#2 Analgesics PRN DVT Prophylaxis PT - WBAT Dressing changed Follow up am labs - if stable, patient orthopedically stable for discharge Recommend dressing change in 1 week to dry dressing changes with gauze and tape Follow up in office in 2 weeks. Patient is ambulating so well, she may benefit from going home directly and receiving home health and outpatient PT Thank you for allowing me to participate in the care of your patient. DO FABRIZIO [facility]
--- NOTE | 2018-09-06 15:28 | NUR ---
DUNCAN received CM communication request HH for patient. RN confirmed consult request and states patient able to walk 150ft. DUNCAN spoke with patient and daughter at bedside regarding discharge recommendation. DUNCAN provided family with list of HH under [employer] along with ALOC letter. Daughter requested to have time to read reviews of agency before making a selection. DUNCAN will follow up with family tomorrow regarding agency choice.
[2018-09-06] MEDS: ENOXAPARIN SOD INJ 40 MG/0.4 ML SYR SC SCH (18:14)
--- NOTE | 2018-09-06 19:20 | NUR ---
WALKING ROUNDS PERFORMED, RECEIVED PT LAYING SEMI FOWLERS IN BED, AAOX3, RR EVEN AND NON-LABORED, ON RA. NO S/SX OF DISTRESS NOTED. DRESSING TO (R) HIP AND (R) THIGH NOTED TO BE CDI. LEFT PT LAYING SEMI FOWLERS IN BED, BED IN LOW LOCKED POSITION, SIDE RAIL UPX2, CALL LIGHT AND PHONE WITHIN REACH.
[2018-09-06] MEDS: ATORVASTATIN 20 MG TAB PO SCH (20:58)
[2018-09-07] VITALS: BP 141/66
[2018-09-07 04:00] VITALS: BP 152/72
[2018-09-07 06:43] LABS: BASOPHILS % 0.7 % (0.0-1.0); EOSINOPHILS # (AUTO) 0.1 (0.0-0.4); EOSINOPHILS % 1.2 % (0.0-6.0); HEMATOCRIT 36.9 % (34.2-44.1); HEMOGLOBIN 12.2 g/dL (12.0-16.0); LYMPHOCYTES % 34.4 % (18.0-39.1); MEAN CORPUSCULAR HEMOGLOBIN 31.1 pg (28-32); MEAN CORPUSCULAR HGB CONC 33.1 g/dL (31-35); MEAN CORPUSCULAR VOLUME 94.1 fL (81-99); MONOCYTES # (AUTO) 0.4 (0.2-0.8); MONOCYTES % 7.6 % (4.4-11.3); NEUTROPHILS # (AUTO) 3.2 (2.1-6.9); NEUTROPHILS % 55.7 % (38.7-80.0); PLATELET COUNT 213 x10e3/uL (140-360); RED BLOOD COUNT 3.92 x10e6/uL (3.6-5.1); RED CELL DISTRIBUTION WIDTH 13.3 % (11.7-14.4)
[2018-09-07] MEDS: HYDROCODONE/APAP 5MG-325MG TAB PO PRN (06:43)
[2018-09-07 07:05] LABS: ANION GAP 15.4 mmol/L (8-16); BLOOD UREA NITROGEN 17 mg/dL (7-26); BUN/CREATININE RATIO 27 (6-25); CALCIUM 9.1 mg/dL (8.4-10.2); CARBON DIOXIDE 26 mmol/L (22-29); CHLORIDE 105 mmol/L (98-107); CREATININE, SERUM 0.63 mg/dL (0.57-1.11); EST GLOMERULAR FILTRATION RATE > 60 ML/MIN (60-); GLUCOSE 133 mg/dL (74-118); POTASSIUM 3.4 mmol/L (3.5-5.1); SODIUM 143 mmol/L (136-145)
[2018-09-07 08:08] VITALS: BP 152/68
[2018-09-07 10:19] VITALS: BP 152/68
[2018-09-07] MEDS: DOCUSATE SODIUM 100 MG CAP PO SCH (10:19)
[2018-09-07] MEDS: AMLODIPINE BESYLATE 10 MG TAB PO SCH (10:19)
[2018-09-07] MEDS: METOPROLOL TARTRATE 50 MG TAB PO SCH (10:19)
--- NOTE | 2018-09-07 10:20 | NUR ---
assessment complete no distress noted, updated on poc vocied understanding, denies pain at this time, dsg to right hip c/d/i, r fa 20g no ss of infiltration noted, no other co voiced call light in reach will continue ot monitor
--- NOTE | 2018-09-07 10:59 | NUR ---
Patient and family have selected [facility] for HH services. SW will send required documents to the agency.
--- NOTE | 2018-09-07 11:30 | NUR ---
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 Alberto MD Current/Previous DME: [facility] Medications (referring to index hospitalization or the first time you were in the hospital) a. Were changes made in your medications when you were in the hospital on [date of index hospitalization]? Yes No Not sure Explain: Note: If no or not sure, please skip to question d b. Did you understand the changes? Yes No Explain: c. Were you able to obtain your new medications right away? Yes No n/a SNF only Explain: d. Were you able to take your medications like the doctor wanted you to? Yes No Explain: e. Did the hospital give you an accurate, easy to understand list of medications when you left? Yes No n/a SNF only Explain: Scale of 1-10 how comfortable does patient feel with disease management in outpatient setting: Other Services: Employment Status: Retired Areas of Concerns: Referral Needs: Education Needs: IMM/HUGHES given and signed (if applicable): Goal for discharge: Addendum: 09/07/18 at 1132 by LYRIC HENDERSON PLEASE DISREGARD NOTE ON 09/07/18 CASE MANAGEMENT INITIAL ASSESSMENT!!
[2018-09-07] MEDS ORDERED: POTASSIUM CHLORIDE 20 MEQ TAB CR PO ONE (12:00)
--- NOTE | 2018-09-07 12:28 | Discharge Summary ---
FINAL DISCHARGE DIAGNOSES 1. Right femur fracture, status post right femur open reduction and internal fixation performed on September 04, 2018 by orthopedics. 2. Hypertension. 3. Hyperlipidemia. CONSULTANTS: Orthopedics. VITAL SIGNS: Temperature is 96.6, pulse 74, respiratory rate is 20, blood pressure 152/68, pulse ox 96% on room air. LAB FINDINGS: Show a white count 5.6, hemoglobin 12, hematocrit is 36.9, platelets of 213. Coagulation: PT 13, INR 0.92, PTT 23. Chemistries: Sodium 143, potassium 3.4, chloride is 105, bicarb 26, anion gap of 15, BUN is 17, creatinine is 0.63, glucose is 133, calcium is 9.1, albumin was 3.8. LFTs were normal. Urinalysis was found to be negative. IMAGING STUDIES: Hip x-ray shows acute comminuted right femoral intertrochanteric fracture. Chest x-ray was negative. HOSPITAL COURSE: This is a 63-year-old female who had a mechanical fall, landed on her right hip. Imaging studies were consistent with acute right femoral intertrochanteric femur fracture. Orthopedics was consulted. Patient underwent a status post right femur open reduction and internal fixation performed on September 04, 2018 by orthopedics. Patient did well postprocedurally. [facility], but the patient was ambulating well with minimal assistance and was walking more than 200 feet on her own. At this time, the patient actually wanted to go home, and I discussed with her that she needs to continue ambulating at home. At this time, she seems not to need any anticoagulation for discharge due to the fact that she is actually ambulating well. I discussed this with the family that she needs to be very active at home to avoid any kind of DVTs. She verbalized understanding. She will be discharged home on oral pain medication. She has been cleared by orthopedics for discharge home. I did arrange for home PT/OT as well. On discharge, patient is to continue with same home medications. On the day of discharge, vital signs stable, labs remained stable. Patient was seen, evaluated and examined thoroughly on the day of discharge and no other complaints. Patient verbalized understanding and agrees to the plan of care to follow up accordingly as an outpatient with the primary care physician in 1 week and orthopedics in 2 weeks' time for staple removal and evaluation. MEDICATIONS: See med reconciliation form. DISPOSITION: Home. CONDITION: Stable. DIET: Heart-healthy. In the event of any worsening symptoms, the patient was advised to come back to the ED for further evaluation. Discharge summary took greater than 35 minutes. Job#: [id number] LPA
[2018-09-07 13:24] VITALS: BP 140/64
[2018-09-07] MEDS ORDERED: TYLENOL WITH C1 EACH PO (13:30)
== END 2018-09-07 13:55 | disposition home health service (06) | DRG 482 ==
LOC: ER 11:11 → ERHOLD 13:40 → MED/SURG3 18:28 → ERHOLD 19:16 → MED/SURG 20:09
PROVIDERS: ADMIT Internal Medicine; ATTEND Internal Medicine
PROC: 0QS606Z Reposition Right Upper Femur with Intramedullary Internal Fixation Device, Open Approach (ICD-10-PCS; principal; 2018-09-04 07:00)
DX: S72.141A Displaced intertrochanteric fracture of right femur, initial encounter for closed fracture (principal); W01.0XXA Fall on same level from slipping, tripping and stumbling without subsequent striking against object, initial encounter; Y93.9 Activity, unspecified; Y92.009 Unspecified place in unspecified non-institutional (private) residence as the place of occurrence of the external cause; I10 Essential (primary) hypertension; E78.5 Hyperlipidemia, unspecified
CPT/HCPCS: 36415; 51700; 71045; 73522; 80048; 80053; 81001; 82948; 85025; 85610; 85730; 86850; 86900; 97139; 99284; C1713; J0360; J0690; J1644; J1650; J1885; J2001; J2250; J2270; J2405; J3480; J7030

== ENCOUNTER → 2018-10-02 | Outpatient (RCR) | payer BC, OTHER ==
[~2018-10-02] MED LIST changes: +TYLENOL WITH C1 EACH PO
== END ==
LOC: PT 09-26 08:47
PROVIDERS: ATTEND Orthopaedic Surgery
DX: S72.141A Displaced intertrochanteric fracture of right femur, initial encounter for closed fracture (principal); M62.81 Muscle weakness (generalized); M25.551 Pain in right hip; M25.651 Stiffness of right hip, not elsewhere classified; R26.9 Unspecified abnormalities of gait and mobility

== ENCOUNTER 2018-10-30 07:00 | Outpatient (RCR) | payer BC, OTHER | END 2018-11-02 | LOC: PT 07:00 | PROVIDERS: ATTEND Orthopaedic Surgery | DX: S72.141A Displaced intertrochanteric fracture of right femur, initial encounter for closed fracture (principal); M25.551 Pain in right hip; M25.651 Stiffness of right hip, not elsewhere classified; M62.81 Muscle weakness (generalized); R26.9 Unspecified abnormalities of gait and mobility ==

== ENCOUNTER → 2018-12-02 | Outpatient (RCR) | payer BC, OTHER | LOC: PT 11-04 06:58 | PROVIDERS: ATTEND Orthopaedic Surgery | DX: S72.141A Displaced intertrochanteric fracture of right femur, initial encounter for closed fracture (principal) ==

== ENCOUNTER 2019-01-01 07:00 | Outpatient (RCR) | payer BC, OTHER | END 2019-01-02 | LOC: PT 07:00 | PROVIDERS: ATTEND Orthopaedic Surgery | DX: S72.141A Displaced intertrochanteric fracture of right femur, initial encounter for closed fracture (principal); M62.81 Muscle weakness (generalized); M25.551 Pain in right hip; M25.651 Stiffness of right hip, not elsewhere classified | CPT/HCPCS: 97139 ==

== ENCOUNTER 2021-10-25 05:58 | Emergency (ER) | payer BC, MEDICARE, OTHER ==
[~2021-10-25] VITALS: Ht 157.5 cm; Wt 84.4 kg
[2021-10-25 06:44] LABS: BASOPHILS % 0.7 % (0.0-1.0); EOSINOPHILS # (AUTO) 0.1 (0.0-0.4); EOSINOPHILS % 1.2 % (0.0-6.0); HEMATOCRIT 44.5 % (34.2-44.1); HEMOGLOBIN 15.3 g/dL (12.0-16.0); LYMPHOCYTES # (AUTO) 1.7 (1.0-3.2); LYMPHOCYTES % 39.8 % (18.0-39.1); MEAN CORPUSCULAR HEMOGLOBIN 31.9 pg (28-32); MEAN CORPUSCULAR HGB CONC 34.4 g/dL (31-35); MEAN CORPUSCULAR VOLUME 92.9 fL (81-99); MONOCYTES # (AUTO) 0.3 (0.2-0.8); MONOCYTES % 7.1 % (4.4-11.3); NEUTROPHILS # (AUTO) 2.2 (2.1-6.9); NEUTROPHILS % 51.2 % (38.7-80.0); PLATELET COUNT 192 x10e3/uL (140-360); RED BLOOD COUNT 4.79 x10e6/uL (3.6-5.1); RED CELL DISTRIBUTION WIDTH 12.7 % (11.7-14.4)
[2021-10-25 07:07] LABS: ALBUMIN/GLOBULIN RATIO 1.3 (0.8-2.0); ANION GAP 10.7 mmol/L (8-16); CALCIUM 8.8 mg/dL (8.4-10.2); CREATININE, SERUM 0.64 mg/dL (0.57-1.11); POTASSIUM 3.7 mmol/L (3.5-5.1)
[2021-10-25] MEDS ORDERED: IOPAMIDOL 370 MG/ML 200 ML INFUS..BTL INJ ONE (07:32)
[2021-10-25] MEDS ORDERED: SODIUM CHLORIDE 0.9% 100 ML ONE (07:32)
[2021-10-25 07:54] LABS: CLARITY,URINE CLEAR (CLEAR); COLOR,URINE YELLOW (YELLOW)
[2021-10-25 07:55] LABS: KETONES,URINE NEGATIVE (NEGATIVE); LEUKOCYTE ESTERASE ,URINE TRACE (NEGATIVE); NITRITE,URINE NEGATIVE (NEGATIVE); PROTEIN,URINE DIPSTICK NEGATIVE (NEGATIVE); URINE UROBILINOGEN 0.2 mg/dL (0.2 - 1)
[2021-10-25 08:08] LABS: BACTERIA,URINE RARE /HPF; EPITHELIAL CELLS,URINE RARE /LPF; WBC,URINE (MAN) 0-5 /HPF (0-5)
[2021-10-25 09:20] VITALS: BP 140/92
== END 2021-10-25 09:15 | disposition home or self-care (01) ==
LOC: ER 06:10
DX: R00.1 Bradycardia, unspecified (principal); R42 Dizziness and giddiness; I10 Essential (primary) hypertension; E78.5 Hyperlipidemia, unspecified; R94.31 Abnormal electrocardiogram [ECG] [EKG]
CPT/HCPCS: 36415; 70450; 70496; 70498; 71045; 80053; 81001; 84484; 85025; 93005; 99284; J7050; Q9967

== ENCOUNTER 2024-04-04 09:08 | Emergency (ER) | payer MEDICARE ==
[~2024-04-04] VITALS: Ht 157.5 cm; Wt 84.4 kg
[2024-04-04 09:40] VITALS: TEMP 98.9
[2024-04-04 10:30] LABS: BASOPHILS % 0.7 % (0.0-1.0); EOSINOPHILS # (AUTO) 0.1 (0.0-0.4); EOSINOPHILS % 2.2 % (0.0-6.0); HEMATOCRIT 44.9 % (34.2-44.1); HEMOGLOBIN 14.7 g/dL (12.0-16.0); LYMPHOCYTES % 43.6 % (18.0-39.1); MEAN CORPUSCULAR HEMOGLOBIN 32.1 pg (28-32); MEAN CORPUSCULAR HGB CONC 32.7 g/dL (31-35); MONOCYTES # (AUTO) 0.3 (0.2-0.8); MONOCYTES % 7.2 % (4.4-11.3); NEUTROPHILS # (AUTO) 2.1 (2.1-6.9); NEUTROPHILS % 46.1 % (38.7-80.0); PLATELET COUNT 191 x10e3/uL (140-360); RED BLOOD COUNT 4.58 x10e6/uL (3.6-5.1); RED CELL DISTRIBUTION WIDTH 13.6 % (11.7-14.4); WHITE BLOOD COUNT 4.56 x10e3/uL (4.8-10.8)
[2024-04-04 10:56] LABS: ALBUMIN 3.9 g/dL (3.5-5.0); ALBUMIN/GLOBULIN RATIO 1.4 (0.8-2.0); BILIRUBIN,TOTAL 0.5 mg/dL (0.2-1.2); CALCIUM 9.2 mg/dL (8.4-10.2); CREATININE, SERUM 0.7 mg/dL (0.57-1.11); TOTAL PROTEIN 6.7 g/dL (6.5-8.1)
[2024-04-04 11:03] LABS: TROPONIN I 0.006 ng/mL (0-0.300)
[2024-04-04] MEDS ORDERED: IOPAMIDOL 370 MG/ML 100 ML INFUS..BTL INJ ONE (11:44)
[2024-04-04] MEDS ORDERED: CARAFATE1 GM PO (13:22)
[2024-04-04 13:45] VITALS: PULSE 43; RESP 16
[2024-04-04 13:49] VITALS: BP 168/74; PULSE 43; RESP 16; O2SAT 97
== END 2024-04-04 14:47 | disposition home or self-care (01) ==
LOC: ER 09:17
DX: R10.11 Right upper quadrant pain (principal); I10 Essential (primary) hypertension; E78.5 Hyperlipidemia, unspecified
CPT/HCPCS: 36415; 74177; 76705; 80053; 83690; 84484; 85025; 93005; 99284; Q9967